=== PATIENT | male | born 1955 | race Caucasian/White ===

== ENCOUNTER → 2021-02-23 | Outpatient (CLI) | payer SELFPAY | END | disposition home or self-care (01) | PROVIDERS: Referring Provider Urology; Visit Provider Urology | DX: N21.0 Calculus in bladder (principal) | CPT/HCPCS: 82360 ==

== ENCOUNTER 2024-01-13 09:15 | Outpatient (RCR) | payer MEDICARE, SELFPAY ==
[2023-12-23 09:03] VITALS: BP 144/70; PULSE 74; RESP 18; TEMP 36.3; BMI 30.3
--- NOTE | 2023-12-23 11:53 | PCM.WC.HP ---
History of Present Illness Date of Service: 12/23/23 Chief Complaint: Right anterior leg ulcer History of Wound: 68 year old male presents with ulcer on his right anterior leg which he obtained in August or September after bumping it on a piece of equipment when he climbing up in it. When he noticed it wasn't healing, he went to his PCP, Dr. Salter. He was placed on Keflex and Bactrim and referred to us at the wound center. He has been placing triple antibiotic ointment on it, without much improvement in his ulcer. He has a medical history of DM type 2, kidney stones, tonsils removed when he was 32. Today he denies fever, chills, nausea or vomiting. He comes in for further evaluation of his right anterior leg ulcer. Progress of Wound: Right anterior leg ulcer with dry scabbing that is very painful to palpation. [facility] Medical History Kidney stones DM type 2 (diabetes mellitus, type 2) Home Medications ?Medication ?Instructions ?Recorded ?Last Taken ?Type amlodipine 5 mg tablet (Norvasc) 5 mg PO DAILY 12/23/23 Unknown History dulaglutide 4.5 mg/0.5 mL 4.5 mg subcut QWEEK 12/23/23 Unknown History subcutaneous pen injector (Trulicity) finasteride 5 mg tablet 5 mg PO DAILY 12/23/23 Unknown History glimepiride 4 mg tablet 4 mg PO 12/23/23 Unknown History metformin 500 mg tablet,extended 500 mg PO BID 12/23/23 Unknown History release 24hr (osmotic) sertraline 50 mg tablet 50 mg PO DAILY 12/23/23 Unknown History simvastatin 10 mg tablet 10 mg PO QHS 12/23/23 Unknown History tamsulosin 0.4 mg capsule 0.4 mg PO BID 12/23/23 Unknown History valsartan 320 1 tab PO QPM 12/23/23 Unknown History mg-hydrochlorothiazide 25 mg tablet Allergy/AdvReac Type Severity Reaction Status Date / Time No Known Allergies Allergy Verified 12/23/23 09:24 Family History Sister Diabetes Surgical History History of tonsillectomy Social History Smoking Status: Never smoker Vital Signs Vital Signs Vital Signs: 12/23/23 09:03 Temperature 97.4 F L Temperature Source Temporal Pulse Rate 74 Respiratory Rate 18 Blood Pressure 144/70 H Blood Pressure Mean 94 Blood Pressure Source Monitor Weight Weight: 230 lb 1.011 oz Body Mass Index (BMI) 30.3 Physical Exam Const alert, oriented x3 and no apparent distress General Appearance: cooperative HEENT normocephalic Head and Scalp: atraumatic Eyes General Eye: normal appearance of both eyes Neck full ROM Lymph Lymphatic: no lymphedema noted Resp normal respiratory effort and clear to auscultation bilaterally Effort and Inspection: able to speak in complete sentences Cardio regular rate and regular rhythm GI normal to inspection, nondistended, normoactive bowel sounds, soft to palpation and non-tender Back/Spine normal ROM Extremity full ROM and normal capillary refill Extremity Narrative: +2 edema of right leg. Pedal pulses +2 bilaterally. Skin Wound Narrative: Right anterior leg ulcer with thick, dry scab that is very painful to palpate. Neuro oriented x3 and moves all extremities Psych mental status grossly normal and cooperative Appearance: appropriate Debridement Note Debridement Note Wound debrided: anterior leg ulcer Laterality: Right Wound Grade/Stage: unstageable at this time Type of Debridement: Excisional debridement Anesthesia Used: 5% Lidocaine Gel and Cetacaine Depth: in the subcutaneous layer Percentage of wound debrided: 100 Instrument Used: 3mm curette, 5mm curette and #15 blade Tissue Removed: Attempted to remove non viable tissue/scabbing, but it is thick and painful Severity: Fat Layer Exposed Amount of bleeding with debridement: None Bleeding Controlled with: Pressure Patient tolerated procedure: Patient tolerated procedure well (patient tolerated it well, considering how painful it was for it to be palpated.) Post-Debridement Measurements and Additional Note: Post-Debridement Measurements/Treatment WC - Nurse 1 - General Ulcer Assessment Start: 12/23/23 09:02 Freq: Status: Active Protocol: NIHARIKA Activity Type Activity Date Activity User E-sign Co-sign Detail Recorded Client Recorded Date Recorded By Document 12/23/23 09:03 DL [id number] 12/23/23 09:20 DL 12/23/23 09:03 WC - Today's Visit Information Type of service Initial Visit Arrival Mode Ambulatory Transfer Assistance None Patient Identification Verified (Name & Yes ) Patient Requires Transmission-Based No Precautions Finger Stick Blood Sugar(mg/dl) (if 120 indicated): Blood Sugar Stated by Patient Height and Weight Height 6 ft 1 in Weight 230 lb 1.011 oz Weight in Pounds 230.1 lbs Weight Measurement Method Estimated by Patient Body Mass Index (BMI) 30.3 BMI Classification Obese BSA - Tania 2.28 Vital Signs Temperature (97.8 F-99.1 F) 97.4 F L Temperature Source Temporal Pulse Rate (60-100) 74 Pulse Location Monitor Respiratory Rate (12-18) 18 Respiratory rate source Observation Blood Pressure (90/60-120/80) 144/70 H Blood Pressure Mean 94 Source Monitor Pain Scale: 0-10 Numeric Is Patient Pain Free? Yes Lower Extremity Assessment/ Foot Assessment/ Toe Nail Assessment Left -Posterior Tibial Palpable Yes -Posterior Tibial Doppler Monophasic -Dorsalis Pedis Palpable Yes -Dorsalis Pedis Doppler Monophasic -Extremity Color Normal -Hair Growth on Legs Yes -Hair Growth on Toes Yes -Temperature of Extremity Warm -Capillary Refill Greater than 3 Seconds -Dependent Rubor No -Blanched when Elevated No -Lipodermatosclerosis No -Other Deformity No -Prior Foot Ulcer No -Charcot Joint No -Prior Amputation No -Thick Yes -Discolored Yes -Deformed Yes -Improper Length & Hygeine Yes Right -Posterior Tibial Palpable Yes -Posterior Tibial Doppler Monophasic -Dorsalis Pedis Palpable Yes -Dorsalis Pedis Doppler Monophasic -Extremity Color Normal -Hair Growth on Legs Yes -Hair Growth on Toes Yes -Temperature of Extremity Warm -Capillary Refill Greater than 3 Seconds -Dependent Rubor No -Blanched when Elevated No -Lipodermatosclerosis No -Other Deformity No -Prior Foot Ulcer No -Charcot Joint No -Prior Amputation No -Thick Yes -Discolored Yes -Deformed Yes -Improper Length & Hygeine Yes Neuropathy Assessment Feet - Top Side and Bottom <Entered> (a) Communication Assessment Preferred language Citizen Of [place] Able to Read Yes Able to Write Yes Right Hearing Abillity Normal Left Hearing Abillity Normal Visual Assistive Devices Glasses Teaching Assessment Preferences Verbal,Written, Demonstration Barriers to Learning None Readiness To Learn Fair Willingness to Engage in Self Management Med Activies Readiness to Engage in Self Management Med Activities Anxiety Level Calm Cooperation Cooperative Perception Coherent Interest in Health Problem Asks Questions Education Importance Acknowledges Need Does Patient Smoke tobacco or other No substances Smoking Status Never smoker Is Patient Diabetic Yes Functional Assessment Recent Decline in Ability to Perform Denies Any Declines Culture/Muslim/Boiler Coverer Helper Cultural/Muslim Needs that may affect No Treatment Plan Would you allow our hospital marketing area manager to No meet you for the purpose of spiritual/ emotional support? Boiler Coverer Helper to contact place of latter-day No Teaching: Wound Center Dressing Your Wound -Person Taught Patient *Welcome to the Wound Center -Person Taught Patient (a) 1 - + WC - Nurse 1 - General Ulcer Measurement Start: 12/23/23 09:02 Freq: Status: Active Protocol: Activity Type Activity Date Activity User E-sign Co-sign Detail Recorded Client Recorded Date Recorded By Document 12/23/23 09:03 DL [id number] 12/23/23 09:20 DL 12/23/23 09:03 Wound Center Nurse 1 #1 R Umanzor -Current Size (cm) - Length 2.8 -Current Size (cm) - Width 1.3 -Current Size (cm) - Depth 0.1 -Total Square Cm 3.64 -Photo Taken Yes -Epithelialization None Present -Classification - Thickness Unclassifiable (Eschar Covered ) -Exudate Amt None Present -Wound Margin Thickened -Granulation Amt None Present (0 %) -Slough/Fibrin Yes -Necrosis Amt Large (67-100%) -Necrotic Tissue Type Eschar -Structure Exposed N/A -Texture (Kathleen-wound Skin Appearance) Scarring -Moisture (Kathleen-wound Skin Appearance) No Abnormality -Color (Kathleen-wound Skin Appearance) Erythema -Temperature (Kathleen-wound Skin No Abnormality Appearance) (Pt Warm) -Ulcer Cleansing Soap and Water -Foul Odor after Cleansing No -Anesthetic Used 5% Lidocaine Gel Right Calf (cm) 38 Right Ankle (cm) 23.5 Left Calf (cm) 39 Left Ankle (cm) 22.5 WC - Nurse 2 - General Ulcer CM Notes Start: 12/23/23 09:02 Freq: Status: Active Protocol: Activity Type Activity Date Activity User E-sign Co-sign Detail Recorded Client Recorded Date Recorded By Document 12/23/23 09:59 KARL [id number] 12/23/23 10:01 JF 12/23/23 09:59 Wound Center Nurse 2 #1 R Umanzor -Time 09:59 -Correct Patient Yes -Correct Side, Site, Position Yes -Correct Procedure Yes -Procedure Performed Yes -Type of Procedure Debridement -Clinical Debridement Subcutaneous -Tissue Removed Subcutaneous -Post Debridement (cm) - Length 2.9 -Post Debridement (cm) - Width 1.5 -Post Debridement (cm) - Depth 0.1 -Total Square (Post) (cm) 4.35 -Area of Debridement (cm) - Length 2.9 -Area of Debridement (cm) - Width 1.5 -Total Square (Area) (cm) 4.35 -Tunneling No -Undermining/Tunneling No -Circular Undermining No -Wound/Ulcer Outcome Not Healed -Ulcer Cleansing Rinsed/ Irrigated with Saline -Foul Odor after Cleansing No -Bioengineered Tissue No -Bleeding Controlled with Pressure -Treatment Response Procedure Tolerated Well -Offloading No -Debridement - Subq, 1st 20sq cm Yes Pain Scale: 0-10 Numeric Is Patient Pain Free? Yes - Nurse 3 - General Ulcer D/C NN Start: 12/23/23 09:02 Freq: Status: Active Protocol: Activity Type Activity Date Activity User E-sign Co-sign Detail Recorded Client Recorded Date Recorded By Document 12/23/23 10:16 DL [id number] 12/23/23 10:17 DL 12/23/23 10:16 Wound Care Center Nurse 3 #1 R Umanzor -Ulcer Cleansing Rinsed/ Irrigated with Saline -Foul Odor after Cleansing No -Primary Dressing Applied C Hydrogel ($) -Primary Dressing Covered/Secured with Dry Gauze, Secured with Tape Right -Tubular Bandage Single Layer -Size of Tubigrip Used Size F -Size F ($) 1 Treatment Response Procedure Tolerated Well Pain Scale: 0-10 Numeric Is Patient Pain Free? Yes WC - Visit Discharge Discharge Condition Stable Ambulatory Status Ambulatory Transportation Private Auto Notes: pt to use Santyl when available Charges/Coding Visit Charges Office Visits / Consults: 75038 OV L4 Est 30min (25 modifier) Procedures Integumentary 111xxx-113xx: 75597 Crystal subq tissue 20 sq cm/< Assessment/Plan Assessment/Plan (1) Ulcer of right medial lower extremity with fat layer exposed: CODE(S): L97.812 - Non-pressure chronic ulcer of other part of right lower leg with fat layer exposed (2) DM type 2 (diabetes mellitus, type 2): CODE(S): E11.9 - Type 2 diabetes mellitus without complications PLAN: Plan Patient evaluated at the wound healing center today. Wound care - Santyl collagen nickel thickness, covered with gauze/ABD/[place] SAP dressing daily after washing with soap and water and patting dry. Compression - Single layer tubigrip. Encouraged him to keep his leg elevated as much as possible to help prevent swelling. He was scheduled later in the week at [facility] for arterial studies. I would like him to cancel those and I will order both arterial and venous studies here so that they meet wound center criteria for compression and wound care. He is to complete the antibiotics that his PCP placed him on. Follow up one week.
--- NOTE | 2023-12-24 11:57 | WC ---
PHOTO 12/23/23 RIGHT LOWER LEG/HELTON
[2023-12-30 11:21] VITALS: BP 154/82; PULSE 61; RESP 18; TEMP 36.3; BMI 30.3
--- NOTE | 2023-12-30 16:42 | PN.PCM_ITS ---
History of Present Illness Date of Service: 12/30/23 Chief Complaint: Right anterior leg ulcer History of Wound: 68 year old male presents with ulcer on his right anterior leg which he obtained in August or September after bumping it on a piece of equipment when he climbing up in it. When he noticed it wasn't healing, he went to his PCP, Dr. Salter. He was placed on Keflex and Bactrim and referred to us at the wound center. He has been placing triple antibiotic ointment on it, without much improvement in his ulcer. He has a medical history of DM type 2, kidney stones, tonsils removed when he was 32. Today he denies fever, chills, nausea or vomiting. He comes in for further evaluation of his right anterior leg ulcer. Progress of Wound: Right anterior leg ulcer with non viable, fibrous tissue present. He has been using the Santyl which has helped soften the non viable tissue. Objective Data Objective Data Vital Signs: Vital Signs Temp Pulse Resp BP O2 Del Method 97.3 F L 61 18 154/82 H Room Air 12/30/23 11:21 12/30/23 11:21 12/30/23 11:21 12/30/23 11:21 12/30/23 11:21 Oxygen Delivery Method Room Air Weight: 230 lb 1.011 oz Body Mass Index (BMI) 30.3 Charges/Coding Procedures Integumentary 111xxx-113xx: 12909 Crystal subq tissue 20 sq cm/< Debridement Note Debridement Note Wound debrided: anterior leg ulcer Laterality: Right Wound Grade/Stage: unstageable at this time Type of Debridement: Excisional debridement Anesthesia Used: 5% Lidocaine Gel and Cetacaine Depth: in the subcutaneous layer Percentage of wound debrided: 100 Instrument Used: 5mm curette and #15 blade Tissue Removed: Non viable tissue and slough Severity: Fat Layer Exposed Amount of bleeding with debridement: Mild Bleeding Controlled with: Pressure Patient tolerated procedure: Patient tolerated procedure well (patient tolerated it well, considering how painful it was for it to be palpated.) Post-Debridement Measurements and Additional Note: Post-Debridement Measurements/Treatment GARDENIA - Nurse 1 - General Ulcer Assessment Start: 12/23/23 09:02 Freq: Status: Active Protocol: NIHARIKA Activity Type Activity Date Activity User E-sign Co-sign Detail Recorded Client Recorded Date Recorded By Document 12/23/23 09:03 DL [id number] 12/23/23 09:20 DL Document 12/30/23 11:21 KW [id number] 12/30/23 11:28 KW 12/23/23 12/30/23 09:03 11:21 WC - Today's Visit Information Type of service Initial Visit Follow-up Visit (Physician/STEAMER TENDER ) Arrival Mode Ambulatory Ambulatory Transfer Assistance None Patient Identification Verified (Name & Yes Yes ) Patient Requires Transmission-Based No Precautions Finger Stick Blood Sugar(mg/dl) (if 120 indicated): Blood Sugar Stated by Patient Height and Weight Height 6 ft 1 in Weight 230 lb 1.011 oz Weight in Pounds 230.1 lbs Weight Measurement Method Estimated by Patient Body Mass Index (BMI) 30.3 30.3 BMI Classification Obese Obese BSA - Tania 2.28 Vital Signs Temperature (97.8 F-99.1 F) 97.4 F L 97.3 F L Temperature Source Temporal Temporal Pulse Rate (60-100) 74 61 Pulse Location Monitor Monitor Respiratory Rate (12-18) 18 18 Respiratory rate source Observation Observation Oxygen Delivery Method Room Air Blood Pressure (90/60-120/80) 144/70 H 154/82 H Blood Pressure Mean (mm Hg) 94 106 Source Monitor Monitor Position Semi-Fowlers Blood Pressure Location Left Arm History Since Last Visit- (Skip if this is Patient's initial visit) Have you changed medications since your No last visit? Any new allergies or adverse reactions No Had a fall/change in ADL's that may No increase risk of falls Signs or symptoms of abuse and/or No neglect since last visit Have you been in the hospital since your No last visit? Has dressing in place as prescribed Yes Has compression in place as prescribed Yes Has offloadiing in place as prescribed N/A Experienced any changes in pain level or No management Left Footwear Regular Shoe Right Footwear Regular Shoe Pain Scale: 0-10 Numeric Is Patient Pain Free? Yes Yes Lower Extremity Assessment/ Foot Assessment/ Toe Nail Assessment Left -Posterior Tibial Palpable Yes -Posterior Tibial Doppler Monophasic -Dorsalis Pedis Palpable Yes -Dorsalis Pedis Doppler Monophasic -Extremity Color Normal -Hair Growth on Legs Yes -Hair Growth on Toes Yes -Temperature of Extremity Warm -Capillary Refill Greater than 3 Seconds -Dependent Rubor No -Blanched when Elevated No -Lipodermatosclerosis No -Other Deformity No -Prior Foot Ulcer No -Charcot Joint No -Prior Amputation No -Thick Yes -Discolored Yes -Deformed Yes -Improper Length & Hygeine Yes Right -Posterior Tibial Palpable Yes -Posterior Tibial Doppler Monophasic -Dorsalis Pedis Palpable Yes -Dorsalis Pedis Doppler Monophasic -Extremity Color Normal -Hair Growth on Legs Yes -Hair Growth on Toes Yes -Temperature of Extremity Warm -Capillary Refill Greater than 3 Seconds -Dependent Rubor No -Blanched when Elevated No -Lipodermatosclerosis No -Other Deformity No -Prior Foot Ulcer No -Charcot Joint No -Prior Amputation No -Thick Yes -Discolored Yes -Deformed Yes -Improper Length & Hygeine Yes Neuropathy Assessment Feet - Top Side and Bottom <Entered> (a) Communication Assessment Preferred language [place] Able to Read Yes Able to Write Yes Right Hearing Abillity Normal Left Hearing Abillity Normal Visual Assistive Devices Glasses Teaching Assessment Preferences Verbal,Written, Demonstration Barriers to Learning None Readiness To Learn Fair Willingness to Engage in Self Management Med Activies Readiness to Engage in Self Management Med Activities Anxiety Level Calm Cooperation Cooperative Perception Coherent Interest in Health Problem Asks Questions Education Importance Acknowledges Need Does Patient Smoke tobacco or other No substances Smoking Status Never smoker Is Patient Diabetic Yes Functional Assessment Recent Decline in Ability to Perform Denies Any Declines Culture/Sabianist/Ground Control Approach Technician Cultural/Sabianist Needs that may affect No Treatment Plan Would you allow our hospital shipping agent to No meet you for the purpose of spiritual/ emotional support? Ground Control Approach Technician to contact place of cheondoism No Teaching: Wound Center Dressing Your Wound -Person Taught Patient *Welcome to the Wound Center -Person Taught Patient (a) 1 - + WC - Nurse 1 - General Ulcer Measurement Start: 12/23/23 09:02 Freq: Status: Active Protocol: Activity Type Activity Date Activity User E-sign Co-sign Detail Recorded Client Recorded Date Recorded By Document 12/23/23 09:03 DL [id number] 12/23/23 09:20 DL Document 12/30/23 11:21 KW [id number] 12/30/23 11:28 KW 12/23/23 12/30/23 09:03 11:21 Wound Center Nurse 1 #1 R Umanzor -Current Size (cm) - Length 2.8 3.5 -Current Size (cm) - Width 1.3 1.2 -Current Size (cm) - Depth 0.1 0.1 -Total Square Cm 3.64 4.20 -Photo Taken Yes -Epithelialization None Present -Classification - Thickness Unclassifiable (Eschar Covered ) -Exudate Amt None Present Small -Exudate Type Serosanguineous -Wound Margin Thickened Distinct, Outline Attached -Granulation Amt None Present (0 Small (1-33%) %) -Granulation Quality [place] -Slough/Fibrin Yes -Necrosis Amt Large (67-100%) Large (67-100%) -Necrotic Tissue Type Eschar Adherent Slough -Structure Exposed N/A -Texture (Kathleen-wound Skin Appearance) Scarring Assessed -Moisture (Kathleen-wound Skin Appearance) No Abnormality Assessed -Color (Kathleen-wound Skin Appearance) Erythema Assessed, Erythema -Temperature (Kathleen-wound Skin No Abnormality No Abnormality Appearance) (Pt Warm) (Pt Warm) -Tenderness on Palpation (Kathleen-wound Yes Skin Appearance) -Ulcer Cleansing Soap and Water Soap and Water -Foul Odor after Cleansing No No -Anesthetic Used 5% Lidocaine 5% Lidocaine Gel Gel Right Calf (cm) 38 38.8 Right Ankle (cm) 23.5 23 Left Calf (cm) 39 Left Ankle (cm) 22.5 WC - Nurse 2 - General Ulcer CM Notes Start: 12/23/23 09:02 Freq: Status: Active Protocol: Activity Type Activity Date Activity User E-sign Co-sign Detail Recorded Client Recorded Date Recorded By Document 12/23/23 09:59 [id number] 12/23/23 10:01 Document 12/30/23 11:58 [facility] [id number] 12/30/23 12:01 [facility] 12/23/23 12/30/23 09:59 11:58 Wound Center Nurse 2 #1 R Umanzor -Time 09:59 11:59 -Correct Patient Yes Yes -Correct Side, Site, Position Yes Yes -Correct Procedure Yes Yes -Procedure Performed Yes Yes -Type of Procedure Debridement Debridement -Clinical Debridement Subcutaneous Subcutaneous -Tissue Removed Subcutaneous Subcutaneous -Post Debridement (cm) - Length 2.9 3.5 -Post Debridement (cm) - Width 1.5 1.5 -Post Debridement (cm) - Depth 0.1 0.1 -Total Square (Post) (cm) 4.35 5.25 -Area of Debridement (cm) - Length 2.9 3.5 -Area of Debridement (cm) - Width 1.5 1.5 -Total Square (Area) (cm) 4.35 5.25 -Tunneling No No -Undermining/Tunneling No No -Circular Undermining No No -Wound/Ulcer Outcome Not Healed Not Healed -Ulcer Cleansing Rinsed/ Rinsed/ Irrigated with Irrigated with Saline Saline -Foul Odor after Cleansing No No -Bioengineered Tissue No No -Bleeding Controlled with Pressure Pressure -Treatment Response Procedure Procedure Tolerated Well Tolerated Well -Offloading No -Debridement - Subq, 1st 20sq cm Yes Yes Pain Scale: 0-10 Numeric Is Patient Pain Free? Yes Yes - Nurse 3 - General Ulcer D/C NN Start: 12/23/23 09:02 Freq: Status: Active Protocol: Activity Type Activity Date Activity User E-sign Co-sign Detail Recorded Client Recorded Date Recorded By Document 12/23/23 10:16 DL [id number] 12/23/23 10:17 DL Document 12/30/23 12:13 JF [id number] 12/30/23 12:13 12/23/23 12/30/23 10:16 12:13 Wound Care Center Nurse 3 #1 R Umanzor -Ulcer Cleansing Rinsed/ Rinsed/ Irrigated with Irrigated with Saline Saline -Foul Odor after Cleansing No No -Primary Dressing Applied C Hydrogel ($) -Other Dressing santyl ointment -Primary Dressing Covered/Secured with Dry Gauze, Dry Gauze & Secured with Roll Gauze Tape -Wound Comment(s) excel sap dressing from patient's own supply. Right -Tubular Bandage Single Layer Single Layer -Size of Tubigrip Used Size F Size D -Size D ($) 0 -Size F ($) 1 Treatment Response Procedure Tolerated Well Pain Scale: 0-10 Numeric Is Patient Pain Free? Yes Yes WC - Visit Discharge Discharge Condition Stable Stable Ambulatory Status Ambulatory Ambulatory Transportation Private Auto Private Auto Medication Reconcilliation completed & Yes provided to patient/care provider Clinical Summary of Care Provided Yes Notes: pt to use Santyl when available Assessment/Plan Assessment/Plan (1) Ulcer of right medial lower extremity with fat layer exposed: CODE(S): L97.812 - Non-pressure chronic ulcer of other part of right lower leg with fat layer exposed (2) DM type 2 (diabetes mellitus, type 2): CODE(S): E11.9 - Type 2 diabetes mellitus without complications PLAN: Plan Patient evaluated at the wound healing center today. Wound care - Continue Santyl collagen nickel thickness, covered with gauze/ABD/[place] SAP dressing daily after washing with soap and water and patting dry. Compression - Single layer tubigrip. Encouraged him to keep his leg elevated as much as possible to help prevent swelling. He is scheduled next Saturday for arterial and venous studies. He completed the antibiotics that his PCP placed him on. Follow up one week.
--- NOTE | 2024-01-06 07:45 | ART_ITS ---
Reason For Study: Wound Procedure A bilateral lower extremity continuous wave Doppler with analog waveform analysis,segmental pressures,and ankle brachial indexes without exercise. Left Segmental Pressures Left brachial= 151mmHg. Left posterior tibial artery = 219mmHg. Left dorsalis pedis artery = 209mmHg. Left digit = 198 mmHg. The left posterior tibial artery waveforms are triphasic. The left dorsalis pedis waveforms are triphasic. Right Segmental Pressures Right brachial= 148mmHg. Right posterior tibial artery = 198mmHg. Right dorsalis pedis artery = 199mmHg. Right digit = 164 mmHg. The right posterior tibial artery waveforms are triphasic. The right dorsalis pedis waveforms are triphasic. Indices The right ankle brachial index by the posterior tibial artery is 1.31. The right ankle brachial index by the dorsalis pedis is 1.32. The right digital-brachial index is 1.09. The left ankle brachial index by the posterior tibial artery is 1.45. The left ankle brachial index by the dorsalis pedis is 1.38. The left digital-brachial index is 1.31. VL/Lower Ext Art Exam w/o Exercis Interpretation Summary Triphasic Doppler waveforms are noted at ankle level bilaterally. Pulse-volume recordings appear diminished at digital level on the left, but satisfactory at all other levels b ilaterally. The resting right ankle-brachial index is normal. The resting left ankle-brachial i ndex is supra-normal. Digital-brachial indices are normal bilaterally. There is evidence of arterial calcification at ankle level on the left. There i s no evidence of significant arterial occlusive disease in the lower extremities bilaterally. Ordering Physician: Cinthia Whiting Referring Physician: Darwin Mcneal Performed By: Carlos Malik RVT
--- NOTE | 2024-01-06 07:45 | VDLE_ITS ---
Reason For Study: Edema RIGHT LEFT CFV is compressible, spontaneous, phasic, CFV is compressible, spontaneous, phasic, competent and demonstrates normal competent, and demonstrates normal augmentation. augmentation. FV is compressible, spontaneous, phasic, FV is compressible, spontaneous, phasic, competent and demonstrates normal competent and demonstrates normal augmentation. augmentation. POP V is compressible, spontaneous, phasic, POP V is compressible, spontaneous, phasic, competent and demonstrates normal competent and demonstrates normal augmentation. augmentation. T/P Trunk is compressible. T/P Trunk is compressible. PTV is compressible. PTV is compressible. RT PerV is compressible. LT PerV is compressible. SFJ is competent and measures 0.52 cm. SFJ is competent and measures 0.63 cm. GSV proximal thigh measures 0.30 x 0.34 cm. GSV proximal thigh measures 0.38 x 0.40 cm. GSV at knee measures 0.48 x 0.49 cm. GSV at knee measures 0.50 x 0.49 cm. GSV above knee is competent. GSV above knee is competent. GSV below knee is INCOMPETENT for greater GSV below knee is INCOMPETENT for greater than 0.5 seconds. than 0.5 seconds. SSV at junction is competent and measures SSV at junction is competent and measures 0.28 cm. 0.33 cm. SSV proximal calf is competent and measures SSV proximal calf is competent and measures 0.30 x 0.29 cm. 0.25 x 0.26 cm. Procedure This is a venous duplex using B-mode, color flow and spectral Doppler. Exam performed in department. The exam was diagnostic. Patient was scanned in reverse Trendelenburg position during reflux assessment. A preliminary report was called and/or faxed to [facility]. VL/Venous Duplex US - Day[place] Extrem Interpretation Summary Deep veins of the lower extremities are bilaterally patent and compressible seg mentally. There is no evidence of deep vein thrombosis on either side. Valvular competence appears in tact within the proximal deep venous systems bilaterally. The great saphenous veins appear bila terally patent and compressible segmentally. Sapheno-femoral junctions are bilaterally competent . The right great saphenous vein appears competent above the knee. 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 The left great saphenous vein appears competent above the knee. The left great saphenous vein appears incompetent below the knee. Small saphenous veins are pa tent and competent bilaterally. Ordering Physician: Cinthia Whiting Referring Physician: Darwin Mcneal Performed By: Carlos Malik RVT
[2024-01-06 09:33] VITALS: BP 142/77; PULSE 64; RESP 16; TEMP 36.5; BMI 30.3
--- NOTE | 2024-01-06 11:00 | PCM.WC.PN ---
History of Present Illness Date of Service: 01/06/24 Chief Complaint: Right anterior leg ulcer History of Wound: 68 year old male presents with ulcer on his right anterior leg which he obtained in August or September after bumping it on a piece of equipment when he climbing up in it. When he noticed it wasn't healing, he went to his PCP, Dr. Salter. He was placed on Keflex and Bactrim and referred to us at the wound center. He has been placing triple antibiotic ointment on it, without much improvement in his ulcer. He has a medical history of DM type 2, kidney stones, tonsils removed when he was 32. Today he denies fever, chills, nausea or vomiting. He comes in for further evaluation of his right anterior leg ulcer. Progress of Wound: Right anterior leg ulcer with non viable, fibrous tissue present. He has been using the Santyl which has helped soften the non viable tissue. This area continues to be very painful for him to have debrided. There is not much improvement this week with the fibrous tissue using the santyl. He has +3 pitting edema of his right leg. Objective Data Objective Data Vital Signs: Vital Signs Temp Pulse Resp BP O2 Del Method 97.7 F L 64 16 142/77 H Room Air 01/06/24 09:33 01/06/24 09:33 01/06/24 09:33 01/06/24 09:33 01/06/24 09:33 Oxygen Delivery Method Room Air Weight: 230 lb 1.011 oz Body Mass Index (BMI) 30.3 Charges/Coding Procedures Integumentary 111xxx-113xx: [id number] Crystal subq tissue 20 sq cm/< Debridement Note Debridement Note Wound debrided: anterior leg ulcer Laterality: Right Wound Grade/Stage: unstageable at this time Type of Debridement: Excisional debridement Anesthesia Used: 5% Lidocaine Gel Depth: in the subcutaneous layer Percentage of wound debrided: 100 Instrument Used: 5mm curette Tissue Removed: Non viable tissue and slough Severity: Fat Layer Exposed Amount of bleeding with debridement: Mild Bleeding Controlled with: Pressure Patient tolerated procedure: Patient tolerated procedure well (patient tolerated it well, considering how painful it was for it to be palpated.) Post-Debridement Measurements and Additional Note: Post-Debridement Measurements/Treatment WC - Nurse 1 - General Ulcer Assessment Start: 10/07/24 09:02 Freq: Status: Active Protocol: WC.LOWEXT Activity Type Activity Date Activity User E-sign Co-sign Detail Recorded Client Recorded Date Recorded By Document 12/23/23 09:03 DL [id number] 12/23/23 09:20 DL Document 12/30/23 11:21 KW [id number] 12/30/23 11:28 KW Document 01/06/24 09:33 KW [id number] 01/06/24 09:39 KW 12/23/23 12/30/23 01/06/24 09:03 11:21 09:33 WC - Today's Visit Information Type of service Initial Visit Follow-up Visit Follow-up Visit (Physician/NUCLEAR MONITORING TECHNICIAN (Physician/NUCLEAR MONITORING TECHNICIAN ) ) Arrival Mode Ambulatory Ambulatory Ambulatory Transfer Assistance None Patient Identification Verified (Name & Yes Yes Yes ) Patient Requires Transmission-Based No Precautions Finger Stick Blood Sugar(mg/dl) (if 120 indicated): Blood Sugar Stated by Patient Height and Weight Height 6 ft 1 in Weight 230 lb 1.011 oz Weight in Pounds 230.1 lbs Weight Measurement Method Estimated by Patient Body Mass Index (BMI) 30.3 30.3 30.3 BMI Classification Obese Obese Obese BSA - Tania 2.28 Vital Signs Temperature (97.8 F-99.1 F) 97.4 F L 97.3 F L 97.7 F L Temperature Source Temporal Temporal Temporal Pulse Rate (60-100) 74 61 64 Pulse Location Monitor Monitor Monitor Respiratory Rate (12-18) 18 18 16 Respiratory rate source Observation Observation Observation Oxygen Delivery Method Room Air Room Air Blood Pressure (90/60-120/80) 144/70 H 154/82 H 142/77 H Blood Pressure Mean (mm Hg) 94 106 98 Source Monitor Monitor Monitor Position Semi-Fowlers Semi-Fowlers Blood Pressure Location Left Arm Left Arm History Since Last Visit- (Skip if this is Patient's initial visit) Have you changed medications since your No No last visit? Any new allergies or adverse reactions No No Had a fall/change in ADL's that may No No increase risk of falls Signs or symptoms of abuse and/or No No neglect since last visit Have you been in the hospital since your No No last visit? Has dressing in place as prescribed Yes Yes Has compression in place as prescribed Yes Yes Has offloadiing in place as prescribed N/A N/A Experienced any changes in pain level or No No management Left Footwear Regular Shoe Regular Shoe Right Footwear Regular Shoe Regular Shoe Pain Scale: 0-10 Numeric Is Patient Pain Free? Yes Yes Yes Lower Extremity Assessment/ Foot Assessment/ Toe Nail Assessment Left -Posterior Tibial Palpable Yes -Posterior Tibial Doppler Monophasic -Dorsalis Pedis Palpable Yes -Dorsalis Pedis Doppler Monophasic -Extremity Color Normal -Hair Growth on Legs Yes -Hair Growth on Toes Yes -Temperature of Extremity Warm -Capillary Refill Greater than 3 Seconds -Dependent Rubor No -Blanched when Elevated No -Lipodermatosclerosis No -Other Deformity No -Prior Foot Ulcer No -Charcot Joint No -Prior Amputation No -Thick Yes -Discolored Yes -Deformed Yes -Improper Length & Hygeine Yes Right -Posterior Tibial Palpable Yes -Posterior Tibial Doppler Monophasic -Dorsalis Pedis Palpable Yes -Dorsalis Pedis Doppler Monophasic -Extremity Color Normal -Hair Growth on Legs Yes -Hair Growth on Toes Yes -Temperature of Extremity Warm -Capillary Refill Greater than 3 Seconds -Dependent Rubor No -Blanched when Elevated No -Lipodermatosclerosis No -Other Deformity No -Prior Foot Ulcer No -Charcot Joint No -Prior Amputation No -Thick Yes -Discolored Yes -Deformed Yes -Improper Length & Hygeine Yes Neuropathy Assessment Feet - Top Side and Bottom <Entered> (a) Communication Assessment Preferred language [place]ian Able to Read Yes Able to Write Yes Right Hearing Abillity Normal Left Hearing Abillity Normal Visual Assistive Devices Glasses Teaching Assessment Preferences Verbal,Written, Demonstration Barriers to Learning None Readiness To Learn Fair Willingness to Engage in Self Management Med Activies Readiness to Engage in Self Management Med Activities Anxiety Level Calm Cooperation Cooperative Perception Coherent Interest in Health Problem Asks Questions Education Importance Acknowledges Need Does Patient Smoke tobacco or other No substances Smoking Status Never smoker Is Patient Diabetic Yes Functional Assessment Recent Decline in Ability to Perform Denies Any Declines Culture/Restorationism/Plate Printer Cultural/Restorationism Needs that may affect No Treatment Plan Would you allow our hospital cycle liaison to No meet you for the purpose of spiritual/ emotional support? Plate Printer to contact place of nondenominational No Teaching: Wound Center Dressing Your Wound -Person Taught Patient *Welcome to the Wound Center -Person Taught Patient (a) 1 - + WC - Nurse 1 - General Ulcer Measurement Start: 12/23/23 09:02 Freq: Status: Active Protocol: Activity Type Activity Date Activity User E-sign Co-sign Detail Recorded Client Recorded Date Recorded By Document 12/23/23 09:03 DL [id number] 12/23/23 09:20 DL Document 12/30/23 11:21 KW [id number] 12/30/23 11:28 KW Document 01/06/24 09:33 KW [id number] 01/06/24 09:39 KW 12/23/23 12/30/23 01/06/24 09:03 11:21 09:33 Wound Center Nurse 1 #1 R Umanzor -Current Size (cm) - Length 2.8 3.5 3.8 -Current Size (cm) - Width 1.3 1.2 1.6 -Current Size (cm) - Depth 0.1 0.1 0.1 -Total Square Cm 3.64 4.20 6.08 -Photo Taken Yes -Epithelialization None Present Small 1-33% -Tunneling No -Undermining/Tunneling No -Circular Undermining No -Classification - Thickness Unclassifiable (Eschar Covered ) -Exudate Amt None Present Small Medium -Exudate Type Serosanguineous Serosanguineous -Wound Margin Thickened Distinct, Distinct, Outline Outline Attached Attached -Granulation Amt None Present (0 Small (1-33%) Small (1-33%) %) -Granulation Quality [place] Red -Slough/Fibrin Yes Yes -Necrosis Amt Large (67-100%) Large (67-100%) Large (67-100%) -Necrotic Tissue Type Eschar Adherent Slough Adherent Slough -Structure Exposed N/A -Texture (Kathleen-wound Skin Appearance) Scarring Assessed Assessed -Moisture (Kathleen-wound Skin Appearance) No Abnormality Assessed Assessed -Color (Kathleen-wound Skin Appearance) Erythema Assessed, Assessed, Erythema Erythema -Temperature (Kathleen-wound Skin No Abnormality No Abnormality No Abnormality Appearance) (Pt Warm) (Pt Warm) (Pt Warm) -Tenderness on Palpation (Kathleen-wound Yes No Skin Appearance) -Ulcer Cleansing Soap and Water Soap and Water Rinsed/ Irrigated with Saline -Foul Odor after Cleansing No No No -Anesthetic Used 5% Lidocaine 5% Lidocaine 5% Lidocaine Gel Gel Gel Lower Limb Edema Present Yes Right Calf (cm) 38 38.8 38.2 Right Ankle (cm) 23.5 23 23.5 Left Calf (cm) 39 Left Ankle (cm) 22.5 WC - Nurse 2 - General Ulcer CM Notes Start: 12/23/23 09:02 Freq: Status: Active Protocol: Activity Type Activity Date Activity User E-sign Co-sign Detail Recorded Client Recorded Date Recorded By Document 12/23/23 09:59 [id number] 12/23/23 10:01 Document 12/30/23 11:58 [email or web address] [id number] 12/30/23 12:01 BM Document 01/06/24 10:04 [id number] 01/06/24 10:10 12/23/23 12/30/23 01/06/24 09:59 11:58 10:04 Wound Center Nurse 2 #1 R Umanzor -Time 09:59 11:59 10:05 -Correct Patient Yes Yes Yes -Correct Side, Site, Position Yes Yes Yes -Correct Procedure Yes Yes Yes -Procedure Performed Yes Yes Yes -Type of Procedure Debridement Debridement Debridement -Clinical Debridement Subcutaneous Subcutaneous Subcutaneous -Tissue Removed Subcutaneous Subcutaneous Subcutaneous -Post Debridement (cm) - Length 2.9 3.5 3.8 -Post Debridement (cm) - Width 1.5 1.5 1.7 -Post Debridement (cm) - Depth 0.1 0.1 0.1 -Total Square (Post) (cm) 4.35 5.25 6.46 -Area of Debridement (cm) - Length 2.9 3.5 3.8 -Area of Debridement (cm) - Width 1.5 1.5 1.7 -Total Square (Area) (cm) 4.35 5.25 6.46 -Tunneling No No No -Undermining/Tunneling No No No -Circular Undermining No No No -Wound/Ulcer Outcome Not Healed Not Healed Not Healed -Ulcer Cleansing Rinsed/ Rinsed/ Rinsed/ Irrigated with Irrigated with Irrigated with Saline Saline Saline -Foul Odor after Cleansing No No No -Bioengineered Tissue No No No -Bleeding Controlled with Pressure Pressure Pressure -Treatment Response Procedure Procedure Procedure Tolerated Well Tolerated Well Tolerated Well -Offloading No No -Debridement - Subq, 1st 20sq cm Yes Yes Yes Pain Scale: 0-10 Numeric Is Patient Pain Free? Yes Yes Yes [place] - Nurse 3 - General Ulcer D/C NN Start: 12/23/23 09:02 Freq: Status: Active Protocol: Activity Type Activity Date Activity User E-sign Co-sign Detail Recorded Client Recorded Date Recorded By Document 12/23/23 10:16 DL [id number] 12/23/23 10:17 DL Document 12/30/23 12:13 JF [id number] 12/30/23 12:13 JF Document 01/06/24 10:15 KW [id number] 01/06/24 10:16 KW 12/23/23 12/30/23 01/06/24 10:16 12:13 10:15 Wound Care Center Nurse 3 #1 R Umanzor -Ulcer Cleansing Rinsed/ Rinsed/ Irrigated with Irrigated with Saline Saline -Foul Odor after Cleansing No No -Primary Dressing Applied C Hydrogel ($) Aquacel AG 4x4 -Other Dressing santyl ointment -Primary Dressing Covered/Secured with Dry Gauze, Dry Gauze & Dry Gauze & Secured with Roll Gauze Roll Gauze, Tape Secured with Tape -Aquacel AG 4x4 1 -Wound Comment(s) excel sap dressing from patient's own supply. Right -Multi-Layered Wrap Application Multi-Layer Comp - Right ($ ) -Tubular Bandage Single Layer Single Layer -Size of Tubigrip Used Size F Size D -Size D ($) 0 -Size F ($) 1 Treatment Response Procedure Tolerated Well Pain Scale: 0-10 Numeric Is Patient Pain Free? Yes Yes Yes WC - Visit Discharge Discharge Condition Stable Stable Stable Ambulatory Status Ambulatory Ambulatory Ambulatory Transportation Private Auto Private Auto Private Auto Medication Reconcilliation completed & Yes No provided to patient/care provider Clinical Summary of Care Provided Yes Yes Notes: pt to use Santyl when available Assessment/Plan Assessment/Plan (1) Ulcer of right medial lower extremity with fat layer exposed: CODE(S): L97.812 - Non-pressure chronic ulcer of other part of right lower leg with fat layer exposed (2) DM type 2 (diabetes mellitus, type 2): CODE(S): E11.9 - Type 2 diabetes mellitus without complications PLAN: Plan Patient evaluated at the wound healing center today. Wound care - Stop the Santyl. Place Moistened Aquacel-Ag over the ulcer and cover with Ecxcel SAP. Compression - 3M 2 layer wraps. Encouraged him to keep his leg elevated as much as possible to help prevent swelling. Preliminary arterial studies reviewed (done earlier today) show Right DAVE 1.32 and Left DAVE 1.45. Waiting on venous studies. Able to increase compression with the results of the Arterial studies. He completed the antibiotics that his PCP placed him on. Follow up for a nurse's visit to have 3M 2 layer wraps changed and evaluate how he is managing with them. Follow up one week to see me.
[2024-01-09 08:58] VITALS: BP 145/72; PULSE 65; RESP 18; TEMP 36.4; BMI 30.3
[2024-01-13 09:04] VITALS: BP 170/78; PULSE 68; RESP 16; TEMP 35.9; BMI 30.3
--- NOTE | 2024-01-13 12:01 | PCM.WC.PN ---
History of Present Illness Date of Service: 01/13/24 Chief Complaint: Right anterior leg ulcer History of Wound: 68 year old male presents with ulcer on his right anterior leg which he obtained in August or September after bumping it on a piece of equipment when he climbing up in it. When he noticed it wasn't healing, he went to his PCP, Dr. Salter. He was placed on Keflex and Bactrim and referred to us at the wound center. He has been placing triple antibiotic ointment on it, without much improvement in his ulcer. He has a medical history of DM type 2, kidney stones, tonsils removed when he was 32. Arterial studies were completed on 01/06/24 - Right DAVE = 1.32. Left DAVE = 1.45. Triphasic Doppler waveforms are noted at the ankle level bilaterally. Pulse-volume recordings appear diminished at the digital level on the left, but satisfactory at all other levels bilaterally. The resting right ankle-brachial index is normal. The resting left ankle-brachial index is supra-normal. Digital-brachial indices are normal bilaterally. There is evidence of arterial calcification at the ankle level on the left. There is no evidence of significant arterial occlusive disease in the lower extremities bilaterally. Venous studies completed on 01/06/24 - Deep veins of the lower extremities are bilaterally patent and compressible segmentally. There is no evidence of deep vein thrombosis on either side. 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 The left great saphenous vein appears incompetent below the knee. Today he denies fever, chills, nausea or vomiting. He comes in for further evaluation of his right anterior leg ulcer. Progress of Wound: Vascular studies obtained on 01/06/24 and reviewed. He continues to have increased discomfort of the ulcer on his right anterior leg. There continues to be increased non viable tissue present on the ulcer and he does not tolerate the debridement. His edema has resolved with the 3M 2 layer wrap compression. Objective Data Objective Data Vital Signs: Vital Signs Temp Pulse Resp BP O2 Del Method 96.7 F L 68 16 170/78 H Room Air 01/13/24 09:04 01/13/24 09:04 01/13/24 09:04 01/13/24 09:04 01/13/24 09:04 Oxygen Delivery Method Room Air Weight: 230 lb 1.011 oz Body Mass Index (BMI) 30.3 Charges/Coding Procedures Integumentary [id number]: [id number] Crystal subq tissue 20 sq cm/< Debridement Note Debridement Note Wound debrided: anterior leg ulcer Laterality: Right Wound Grade/Stage: unstageable at this time Type of Debridement: Excisional debridement Anesthesia Used: 5% Lidocaine Gel and - (Lidocaine 1% with epi) Depth: in the subcutaneous layer Percentage of wound debrided: 100 Instrument Used: 5mm curette, #10 blade and Forceps Tissue Removed: Non viable tissue and slough Severity: Fat Layer Exposed Amount of bleeding with debridement: Mild Bleeding Controlled with: Pressure and Compression and gauze Patient tolerated procedure: Patient tolerated procedure well (patient tolerated it well, considering how painful it was for it to be palpated.) Debridement Free Text: Used #15 blade and forceps after injecting Lidocaine 1% with epi to remove a significant amount of non viable tissue Post-Debridement Measurements and Additional Note: Post-Debridement Measurements/Treatment WC - Nurse 1 - General Ulcer Assessment Start: 12/23/23 09:02 Freq: Status: Active Protocol: NIHARIKA Activity Type Activity Date Activity User E-sign Co-sign Detail Recorded Client Recorded Date Recorded By Document 12/23/23 09:03 DL [id number] 12/23/23 09:20 DL Document 12/30/23 11:21 KW [id number] 12/30/23 11:28 KW Document 01/06/24 09:33 KW [id number] 01/06/24 09:39 KW Document 01/09/24 08:58 RB [id number] 01/09/24 09:00 RB Document 01/13/24 09:04 BM [id number] 01/13/24 09:13 BM 12/23/23 12/30/23 01/06/24 09:03 11:21 09:33 - Today's Visit Information Type of service Initial Visit Follow-up Visit Follow-up Visit (Physician/ROCK LOADER (Physician/ROCK LOADER ) ) Arrival Mode Ambulatory Ambulatory Ambulatory Transfer Assistance None Patient Identification Verified (Name & Yes Yes Yes ) Patient Requires Transmission-Based No Precautions Finger Stick Blood Sugar(mg/dl) (if 120 indicated): Blood Sugar Stated by Patient Height and Weight Height 6 ft 1 in Weight 230 lb 1.011 oz Weight in Pounds 230.1 lbs Weight Measurement Method Estimated by Patient Body Mass Index (BMI) 30.3 30.3 30.3 BMI Classification Obese Obese Obese BSA - Tania 2.28 Vital Signs Temperature (97.8 F-99.1 F) 97.4 F L 97.3 F L 97.7 F L Temperature Source Temporal Temporal Temporal Pulse Rate (60-100) 74 61 64 Pulse Location Monitor Monitor Monitor Respiratory Rate (12-18) 18 18 16 Respiratory rate source Observation Observation Observation Oxygen Delivery Method Room Air Room Air Blood Pressure (90/60-120/80) 144/70 H 154/82 H 142/77 H Blood Pressure Mean (mm Hg) 94 106 98 Source Monitor Monitor Monitor Position Semi-Fowlers Semi-Fowlers Blood Pressure Location Left Arm Left Arm History Since Last Visit- (Skip if this is Patient's initial visit) Have you changed medications since your No No last visit? Any new allergies or adverse reactions No No Had a fall/change in ADL's that may No No increase risk of falls Signs or symptoms of abuse and/or No No neglect since last visit Have you been in the hospital since your No No last visit? Has dressing in place as prescribed Yes Yes Has compression in place as prescribed Yes Yes Has offloadiing in place as prescribed N/A N/A Experienced any changes in pain level or No No management Left Footwear Regular Shoe Regular Shoe Right Footwear Regular Shoe Regular Shoe Pain Scale: 0-10 Numeric Is Patient Pain Free? Yes Yes Yes Lower Extremity Assessment/ Foot Assessment/ Toe Nail Assessment Left -Posterior Tibial Palpable Yes -Posterior Tibial Doppler Monophasic -Dorsalis Pedis Palpable Yes -Dorsalis Pedis Doppler Monophasic -Extremity Color Normal -Hair Growth on Legs Yes -Hair Growth on Toes Yes -Temperature of Extremity Warm -Capillary Refill Greater than 3 Seconds -Dependent Rubor No -Blanched when Elevated No -Lipodermatosclerosis No -Other Deformity No -Prior Foot Ulcer No -Charcot Joint No -Prior Amputation No -Thick Yes -Discolored Yes -Deformed Yes -Improper Length & Hygeine Yes Right -Posterior Tibial Palpable Yes -Posterior Tibial Doppler Monophasic -Dorsalis Pedis Palpable Yes -Dorsalis Pedis Doppler Monophasic -Extremity Color Normal -Hair Growth on Legs Yes -Hair Growth on Toes Yes -Temperature of Extremity Warm -Capillary Refill Greater than 3 Seconds -Dependent Rubor No -Blanched when Elevated No -Lipodermatosclerosis No -Other Deformity No -Prior Foot Ulcer No -Charcot Joint No -Prior Amputation No -Thick Yes -Discolored Yes -Deformed Yes -Improper Length & Hygeine Yes Neuropathy Assessment Feet - Top Side and Bottom <Entered> (a) Communication Assessment Preferred language Hungarian Able to Read Yes Able to Write Yes Right Hearing Abillity Normal Left Hearing Abillity Normal Visual Assistive Devices Glasses Teaching Assessment Preferences Verbal,Written, Demonstration Barriers to Learning None Readiness To Learn Fair Willingness to Engage in Self Management Med Activies Readiness to Engage in Self Management Med Activities Anxiety Level Calm Cooperation Cooperative Perception Coherent Interest in Health Problem Asks Questions Education Importance Acknowledges Need Does Patient Smoke tobacco or other No substances Smoking Status Never smoker Is Patient Diabetic Yes Functional Assessment Recent Decline in Ability to Perform Denies Any Declines Culture/Amish/Doggy Daycare Activities Director Cultural/Amish Needs that may affect No Treatment Plan Would you allow our [facility] professor of education to No meet you for the purpose of spiritual/ emotional support? Doggy Daycare Activities Director to contact place of christian No Teaching: Wound Center Dressing Your Wound -Person Taught Patient *Welcome to the Wound Center -Person Taught Patient 01/09/24 01/13/24 08:58 09:04 WC - Today's Visit Information Type of service Follow-up Visit Follow-up Visit (Physician/ROCK LOADER (Physician/ROCK LOADER ) ) Arrival Mode Ambulatory Ambulatory Transfer Assistance None None Patient Identification Verified (Name & Yes Yes ) Patient Requires Transmission-Based No No Precautions Finger Stick Blood Sugar(mg/dl) (if indicated): Blood Sugar Height and Weight Height Weight Weight in Pounds Weight Measurement Method Body Mass Index (BMI) 30.3 30.3 BMI Classification Obese Obese [facility] - Tania Vital Signs Temperature (97.8 F-99.1 F) 97.6 F L 96.7 F L Temperature Source Temporal Temporal Pulse Rate (60-100) 65 68 Pulse Location Monitor Monitor Respiratory Rate (12-18) 18 16 Respiratory rate source Observation Observation Oxygen Delivery Method Room Air Blood Pressure (90/60-120/80) 145/72 H 170/78 H Blood Pressure Mean (mm Hg) 96 108 Source Monitor Monitor Position Semi-Fowlers Sitting Blood Pressure Location Left Arm Left Arm History Since Last Visit- (Skip if this is Patient's initial visit) Have you changed medications since your No No last visit? Any new allergies or adverse reactions No No Had a fall/change in ADL's that may No No increase risk of falls Signs or symptoms of abuse and/or No No neglect since last visit Have you been in the hospital since your No No last visit? Has dressing in place as prescribed Yes Yes Has compression in place as prescribed Yes Yes Has offloadiing in place as prescribed No N/A Experienced any changes in pain level or No No management Left Footwear Regular Shoe Right Footwear Regular Shoe Pain Scale: 0-10 Numeric Is Patient Pain Free? Yes Yes Lower Extremity Assessment/ Foot Assessment/ Toe Nail Assessment Left -Posterior Tibial Palpable -Posterior Tibial Doppler -Dorsalis Pedis Palpable -Dorsalis Pedis Doppler -Extremity Color -Hair Growth on Legs -Hair Growth on Toes -Temperature of Extremity -Capillary Refill -Dependent Rubor -Blanched when Elevated -Lipodermatosclerosis -Other Deformity -Prior Foot Ulcer -Charcot Joint -Prior Amputation -Thick -Discolored -Deformed -Improper Length & Hygeine Right -Posterior Tibial Palpable -Posterior Tibial Doppler -Dorsalis Pedis Palpable -Dorsalis Pedis Doppler -Extremity Color -Hair Growth on Legs -Hair Growth on Toes -Temperature of Extremity -Capillary Refill -Dependent Rubor -Blanched when Elevated -Lipodermatosclerosis -Other Deformity -Prior Foot Ulcer -Charcot Joint -Prior Amputation -Thick -Discolored -Deformed -Improper Length & Hygeine Neuropathy Assessment Feet - Top Side and Bottom Communication Assessment Preferred language Able to Read Able to Write Right Hearing Abillity Left Hearing Abillity Visual Assistive Devices Teaching Assessment Preferences Barriers to Learning Readiness To Learn Willingness to Engage in Self Management Activies Readiness to Engage in Self Management Activities Anxiety Level Cooperation Perception Interest in Health Problem Education Importance Does Patient Smoke tobacco or other substances Smoking Status Is Patient Diabetic Functional Assessment Recent Decline in Ability to Perform Culture/Amish/Doggy Daycare Activities Director Cultural/Amish Needs that may affect Treatment Plan Would you allow our hospital professor of education to meet you for the purpose of spiritual/ emotional support? Doggy Daycare Activities Director to contact place of christian Teaching: Wound Center Dressing Your Wound -Person Taught *Welcome to the Wound Center -Person Taught (a) 1 - + WC - Nurse 1 - General Ulcer Measurement Start: 12/23/23 09:02 Freq: Status: Active Protocol: Activity Type Activity Date Activity User E-sign Co-sign Detail Recorded Client Recorded Date Recorded By Document 12/23/23 09:03 DL [id number] 12/23/23 09:20 DL Document 12/30/23 11:21 KW [id number] 12/30/23 11:28 KW Document 01/06/24 09:33 KW [id number] 01/06/24 09:39 KW Document 01/09/24 08:58 RB [id number] 01/09/24 09:00 RB Document 01/13/24 09:04 BMF [id number] 01/13/24 09:13 BMF 12/23/23 12/30/23 01/06/24 09:03 11:21 09:33 Wound Center Nurse 1 #1 R Umanzor -Combined with other wound -Current Size (cm) - Length 2.8 3.5 3.8 -Current Size (cm) - Width 1.3 1.2 1.6 -Current Size (cm) - Depth 0.1 0.1 0.1 -Total Square Cm 3.64 4.20 6.08 -Date of Last Picture (Recall this field) -Photo Taken Yes -Epithelialization None Present Small 1-33% -Tunneling No -Undermining/Tunneling No -Circular Undermining No -Classification - Thickness Unclassifiable (Eschar Covered ) -Exudate Amt None Present Small Medium -Exudate Type Serosanguineous Serosanguineous -Wound Margin Thickened Distinct, Distinct, Outline Outline Attached Attached -Granulation Amt None Present (0 Small (1-33%) Small (1-33%) %) -Granulation Quality [place] Red -Slough/Fibrin Yes Yes -Necrosis Amt Large (67-100%) Large (67-100%) Large (67-100%) -Necrotic Tissue Type Eschar Adherent Slough Adherent Slough -Structure Exposed N/A -Texture (Kathleen-wound Skin Appearance) Scarring Assessed Assessed -Moisture (Kathleen-wound Skin Appearance) No Abnormality Assessed Assessed -Color (Kathleen-wound Skin Appearance) Erythema Assessed, Assessed, Erythema Erythema -Temperature (Kathleen-wound Skin No Abnormality No Abnormality No Abnormality Appearance) (Pt Warm) (Pt Warm) (Pt Warm) -Tenderness on Palpation (Kathleen-wound Yes No Skin Appearance) -Ulcer Cleansing Soap and Water Soap and Water Rinsed/ Irrigated with Saline -Foul Odor after Cleansing No No No -Anesthetic Used 5% Lidocaine 5% Lidocaine 5% Lidocaine Gel Gel Gel Lower Limb Edema Present Yes Right Calf (cm) 38 38.8 38.2 Right Ankle (cm) 23.5 23 23.5 Left Calf (cm) 39 Left Ankle (cm) 22.5 01/09/24 01/13/24 08:58 09:04 Wound Center Nurse 1 #1 R Umanzor -Combined with other wound No No -Current Size (cm) - Length 3.9 -Current Size (cm) - Width 1.4 -Current Size (cm) - Depth 0.1 -Total Square Cm 5.46 -Date of Last Picture (Recall this 01/13/24 field) -Photo Taken Yes -Epithelialization None Present -Tunneling No -Undermining/Tunneling No -Circular Undermining No -Classification - Thickness -Exudate Amt Medium Medium -Exudate Type Serosanguineous Serosanguineous -Wound Margin Thickened & Distinct, Rolled Under Outline Attached -Granulation Amt Medium (34-66%) None Present (0 %) -Granulation Quality [place] -Slough/Fibrin Yes Yes -Necrosis Amt Small (1-33%) Large (67-100%) -Necrotic Tissue Type Adherent Slough Eschar -Structure Exposed N/A -Texture (Kathleen-wound Skin Appearance) Assessed Assessed, Scarring -Moisture (Kathleen-wound Skin Appearance) Assessed Assessed -Color (Kathleen-wound Skin Appearance) Erythema, Assessed Hemosiderin Staining -Temperature (Kathleen-wound Skin No Abnormality No Abnormality Appearance) (Pt Warm) (Pt Warm) -Tenderness on Palpation (Kathleen-wound No No Skin Appearance) -Ulcer Cleansing Wound Cleanser Soap and Water -Foul Odor after Cleansing No No -Anesthetic Used 5% Lidocaine Gel Lower Limb Edema Present Yes Right Calf (cm) 36.2 35.7 Right Ankle (cm) 22.5 22.8 Left Calf (cm) Left Ankle (cm) WC - Nurse 2 - General Ulcer CM Notes Start: 12/23/23 09:02 Freq: Status: Active Protocol: Activity Type Activity Date Activity User E-sign Co-sign Detail Recorded Client Recorded Date Recorded By Document 12/23/23 09:59 [id number] 12/23/23 10:01 Document 12/30/23 11:58 BM [id number] 12/30/23 12:01 BM Document 01/06/24 10:04 [id number] 01/06/24 10:10 Document 01/13/24 09:40 [id number] 01/13/24 09:59 JF 12/23/23 12/30/23 01/06/24 09:59 11:58 10:04 Wound Center Nurse 2 #1 R Umanzor - 0959 11:59 10:05 -Correct Patient Yes Yes Yes -Correct Side, Site, Position Yes Yes Yes -Correct Procedure Yes Yes Yes -Procedure Performed Yes Yes Yes -Type of Procedure Debridement Debridement Debridement -Clinical Debridement Subcutaneous Subcutaneous Subcutaneous -Tissue Removed Subcutaneous Subcutaneous Subcutaneous -Post Debridement (cm) - Length 2.9 3.5 3.8 -Post Debridement (cm) - Width 1.5 1.5 1.7 -Post Debridement (cm) - Depth 0.1 0.1 0.1 -Total Square (Post) (cm) 4.35 5.25 6.46 -Area of Debridement (cm) - Length 2.9 3.5 3.8 -Area of Debridement (cm) - Width 1.5 1.5 1.7 -Total Square (Area) (cm) 4.35 5.25 6.46 -Tunneling No No No -Undermining/Tunneling No No No -Circular Undermining No No No -Wound/Ulcer Outcome Not Healed Not Healed Not Healed -Ulcer Cleansing Rinsed/ Rinsed/ Rinsed/ Irrigated with Irrigated with Irrigated with Saline Saline Saline -Foul Odor after Cleansing No No No -Bioengineered Tissue No No No -Bleeding Controlled with Pressure Pressure Pressure -Treatment Response Procedure Procedure Procedure Tolerated Well Tolerated Well Tolerated Well -Offloading No No -Debridement - Subq, 1st 20sq cm Yes Yes Yes Pain Scale: 0-10 Numeric Is Patient Pain Free? Yes Yes Yes 01/13/24 09:40 Wound Center Nurse 2 #1 R Umanzor -Time 09:45 -Correct Patient Yes -Correct Side, Site, Position Yes -Correct Procedure Yes -Procedure Performed Yes -Type of Procedure Debridement -Clinical Debridement Subcutaneous -Tissue Removed Subcutaneous -Post Debridement (cm) - Length 4.3 -Post Debridement (cm) - Width 1.6 -Post Debridement (cm) - Depth 0.1 -Total Square (Post) (cm) 6.88 -Area of Debridement (cm) - Length 4.3 -Area of Debridement (cm) - Width 1.6 -Total Square (Area) (cm) 6.88 -Tunneling No -Undermining/Tunneling No -Circular Undermining No -Wound/Ulcer Outcome Not Healed -Ulcer Cleansing Rinsed/ Irrigated with Saline -Foul Odor after Cleansing No -Bioengineered Tissue No -Bleeding Controlled with Pressure -Treatment Response Procedure Tolerated Well -Offloading No -Debridement - Subq, 1st 20sq cm Yes Pain Scale: 0-10 Numeric Is Patient Pain Free? Yes WC - Nurse 3 - General Ulcer D/C NN Start: 12/23/23 09:02 Freq: Status: Active Protocol: Activity Type Activity Date Activity User E-sign Co-sign Detail Recorded Client Recorded Date Recorded By Document 12/23/23 10:16 DL [id number] 12/23/23 10:17 DL Document 12/30/23 12:13 JF [id number] 12/30/23 12:13 JF Document 01/06/24 10:15 KW [id number] 01/06/24 10:16 KW Document 01/09/24 08:58 RB [id number] 01/09/24 09:00 RB Document 01/13/24 11:45 JF [id number] 01/13/24 11:45 JF 12/23/23 12/30/23 01/06/24 10:16 12:13 10:15 Wound Care Center Nurse 3 #1 R Umanzor -Ulcer Cleansing Rinsed/ Rinsed/ Irrigated with Irrigated with Saline Saline -Foul Odor after Cleansing No No -Primary Dressing Applied C Hydrogel ($) Aquacel AG 4x4 -Other Dressing santyl ointment -Primary Dressing Covered/Secured with Dry Gauze, Dry Gauze & Dry Gauze & Secured with Roll Gauze Roll Gauze, Tape Secured with Tape -Aquacel AG 4x4 1 -Mepilex Border -Wound Comment(s) excel sap dressing from patient's own supply. Right -Multi-Layered Wrap Application Multi-Layer Comp - Right ($ ) -Tubular Bandage Single Layer Single Layer -Size of Tubigrip Used Size F Size D -Size D ($) 0 -Size F ($) 1 Treatment Response Procedure Tolerated Well Vital Signs Temperature (97.8 F-99.1 F) Temperature Source Pulse Rate (60-100) Pulse Location Respiratory Rate (12-18) Respiratory rate source Blood Pressure (90/60-120/80) Blood Pressure Mean (mm Hg) Source Position Blood Pressure Location Pain Scale: 0-10 Numeric Is Patient Pain Free? Yes Yes Yes WC - Visit Discharge Discharge Condition Stable Stable Stable Ambulatory Status Ambulatory Ambulatory Ambulatory Transportation Private Auto Private Auto Private Auto Medication Reconcilliation completed & Yes No provided to patient/care provider Clinical Summary of Care Provided Yes Yes Notes: pt to use Santyl when available 01/09/24 01/13/24 08:58 11:45 Wound Care Center Nurse 3 #1 R Umanzor -Ulcer Cleansing Wound Cleanser Rinsed/ Irrigated with Saline -Foul Odor after Cleansing No -Primary Dressing Applied Mepilex Border -Other Dressing aquacel AG -Primary Dressing Covered/Secured with Dry Gauze Dry Gauze -Aquacel AG 4x4 -Mepilex Border 1 -Wound Comment(s) Right -Multi-Layered Wrap Application Multi-Layer Comp - Right ($ ) -Tubular Bandage Double Layer -Size of Tubigrip Used Size D -Size D ($) 2 -Size F ($) Treatment Response Procedure Tolerated Well Vital Signs Temperature (97.8 F-99.1 F) 97.6 F L Temperature Source Temporal Pulse Rate (60-100) 65 Pulse Location Monitor Respiratory Rate (12-18) 18 Respiratory rate source Observation Blood Pressure (90/60-120/80) 145/72 H Blood Pressure Mean (mm Hg) 96 Source Monitor Position Semi-Fowlers Blood Pressure Location Left Arm Pain Scale: 0-10 Numeric Is Patient Pain Free? Yes Yes WC - Visit Discharge Discharge Condition Stable Stable Ambulatory Status Ambulatory Ambulatory Transportation Private Auto Private Auto Medication Reconcilliation completed & No Yes provided to patient/care provider Clinical Summary of Care Provided Yes Yes Notes: Assessment/Plan Assessment/Plan (1) Ulcer of right medial lower extremity with fat layer exposed: CODE(S): L97.812 - Non-pressure chronic ulcer of other part of right lower leg with fat layer exposed (2) DM type 2 (diabetes mellitus, type 2): CODE(S): E11.9 - Type 2 diabetes mellitus without complications PLAN: Plan Patient evaluated at the wound healing center today. Wound care - Restart Santyl,place moistened gauze and cover with ABD/ Ecxcel SAP daily. Compression - Double tubigrip. Encouraged him to keep his leg elevated as much as possible to help prevent swelling. Reviewed arterial and venous studies. He completed the antibiotics that his PCP placed him on. Follow up one week.
--- NOTE | 2024-01-13 13:01 | WC ---
PHOTO 01/13/24 RIGHT [place]
== END 2024-01-16 23:59 | disposition home or self-care (01) ==
LOC: WC 09:15
PROVIDERS: PCP Nurse Practitioner Family; Referring Provider Nurse Practitioner Family; Visit Provider Nurse Practitioner Family
DX: E11.622 Type 2 diabetes mellitus with other skin ulcer (principal); L97.812 Non-pressure chronic ulcer of other part of right lower leg with fat layer exposed; E11.40 Type 2 diabetes mellitus with diabetic neuropathy, unspecified; Z79.84 Long term (current) use of oral hypoglycemic drugs; Z79.85 Long-term (current) use of injectable non-insulin antidiabetic drugs; R60.0 Localized edema; Z87.442 Personal history of urinary calculi; I77.1 Stricture of artery
CPT/HCPCS: 11042; 29581; 93923; 93970; 99214; G0463

== ENCOUNTER 2024-02-05 14:30 | Outpatient (RCR) | payer MEDICARE, SELFPAY ==
[2024-01-17 00:50] VITALS: BP 170/78; PULSE 68; RESP 16; TEMP 35.9; BMI 30.3
[2024-01-20 08:43] VITALS: BP 151/79; PULSE 73; RESP 18; TEMP 36.1; BMI 30.3
--- NOTE | 2024-01-20 12:30 | PN.PCM_ITS ---
History of Present Illness Date of Service: 01/20/24 Chief Complaint: Right anterior leg ulcer History of Wound: 68 year old male presents with ulcer on his right anterior leg which he obtained in August or September after bumping it on a piece of equipment when he climbing up in it. When he noticed it wasn't healing, he went to his PCP, Dr. Salter. He was placed on Keflex and Bactrim and referred to us at the wound center. He has been placing triple antibiotic ointment on it, without much improvement in his ulcer. He has a medical history of DM type 2, kidney stones, tonsils removed when he was 32. Today he denies fever, chills, nausea or vomiting. He comes in for further evaluation of his right anterior leg ulcer. Progress of Wound: He continues to have increased discomfort of the ulcer on his right anterior leg. His ulcer is larger and there is a purple hue surrounding the ulcer. There continues to be increased non viable, fibrous tissue present on the ulcer and he does not tolerate the debridement. Objective Data Objective Data Vital Signs: Vital Signs Temp Pulse Resp BP 97 F L 73 18 151/79 H 01/20/24 08:43 01/20/24 08:43 01/20/24 08:43 01/20/24 08:43 Weight: 230 lb 1.011 oz Body Mass Index (BMI) 30.3 Charges/Coding Procedures Integumentary 111xxx-113xx: 30858 Crystal subq tissue 20 sq cm/< Debridement Note Debridement Note Wound debrided: anterior leg ulcer Laterality: Right Wound Grade/Stage: unstageable at this time Type of Debridement: Excisional debridement Anesthesia Used: 5% Lidocaine Gel Depth: in the subcutaneous layer Percentage of wound debrided: 100 Instrument Used: #15 blade, Forceps and - (Misonix aquasonic debrider ) Tissue Removed: Non viable tissue and slough Severity: Fat Layer Exposed Amount of bleeding with debridement: Mild Bleeding Controlled with: Pressure and Compression and gauze Patient tolerated procedure: Patient did not tolerate procedure well Post-Debridement Measurements and Additional Note: Post-Debridement Measurements/Treatment [place] - Nurse 1 - General Ulcer Assessment Start: 01/20/24 08:43 Freq: Status: Active Protocol: NIHARIKA Activity Type Activity Date Activity User E-sign Co-sign Detail Recorded Client Recorded Date Recorded By Document 01/20/24 08:43 KW [id number] 01/20/24 08:50 01/20/24 08:43 - Today's Visit Information Type of service Follow-up Visit (Physician/CORE JAVA SOFTWARE ENGINEER ) Arrival Mode Ambulatory Transfer Assistance Stretcher Patient Identification Verified (Name & Yes ) Patient Requires Transmission-Based No Precautions Height and Weight Body Mass Index (BMI) 30.3 BMI Classification Obese Vital Signs Temperature (97.8 F-99.1 F) 97 F L Temperature Source Temporal Pulse Rate (60-100) 73 Pulse Location Monitor Respiratory Rate (12-18) 18 Respiratory rate source Observation Blood Pressure (90/60-120/80) 151/79 H Blood Pressure Mean (mm Hg) 103 Source Monitor History Since Last Visit- (Skip if this is Patient's initial visit) Have you changed medications since your No last visit? Any new allergies or adverse reactions No Had a fall/change in ADL's that may No increase risk of falls Signs or symptoms of abuse and/or No neglect since last visit Have you been in the hospital since your No last visit? Has dressing in place as prescribed Yes Has compression in place as prescribed Yes Has offloadiing in place as prescribed N/A Experienced any changes in pain level or No management Pain Scale: 0-10 Numeric Is Patient Pain Free? Yes - Nurse 1 - General Ulcer Measurement Start: 01/20/24 08:43 Freq: Status: Active Protocol: Activity Type Activity Date Activity User E-sign Co-sign Detail Recorded Client Recorded Date Recorded By Document 01/20/24 08:43 [id number] 01/20/24 08:50 01/20/24 08:43 Wound Center Nurse 1 #1 R Umanzor -Current Size (cm) - Length 4.6 -Current Size (cm) - Width 1.7 -Current Size (cm) - Depth 0.1 -Total Square Cm 7.82 -Photo Taken Yes -Exudate Amt Medium -Exudate Type Serosanguineous -Wound Margin Distinct, Outline Attached -Granulation Amt Small (1-33%) -Granulation Quality [place] -Necrosis Amt Large (67-100%) -Necrotic Tissue Type Adherent Slough -Structure Exposed N/A -Texture (Kathleen-wound Skin Appearance) Scarring -Moisture (Kathleen-wound Skin Appearance) No Abnormality -Color (Kathleen-wound Skin Appearance) Erythema -Temperature (Kathleen-wound Skin No Abnormality Appearance) (Pt Warm) -Tenderness on Palpation (Kathleen-wound No Skin Appearance) -Ulcer Cleansing Soap and Water -Foul Odor after Cleansing No -Anesthetic Used 5% Lidocaine Gel Right Calf (cm) 35.8 Right Ankle (cm) 22 - Nurse 2 - General Ulcer CM Notes Start: 01/20/24 08:43 Freq: Status: Active Protocol: Activity Type Activity Date Activity User E-sign Co-sign Detail Recorded Client Recorded Date Recorded By Document 01/20/24 09:18 [id number] 01/20/24 09:27 01/20/24 09:18 Wound Center Nurse 2 #1 R Umanzor -Time 09:18 -Correct Patient Yes -Correct Side, Site, Position Yes -Correct Procedure Yes -Procedure Performed Yes -Type of Procedure Debridement -Clinical Debridement Subcutaneous -Tissue Removed Subcutaneous -Post Debridement (cm) - Length 4.9 -Post Debridement (cm) - Width 1.9 -Post Debridement (cm) - Depth 0.1 -Total Square (Post) (cm) 9.31 -Area of Debridement (cm) - Length 4.9 -Area of Debridement (cm) - Width 1.9 -Total Square (Area) (cm) 9.31 -Tunneling No -Undermining/Tunneling No -Circular Undermining No -Wound/Ulcer Outcome Not Healed -Ulcer Cleansing Rinsed/ Irrigated with Saline -Foul Odor after Cleansing No -Bioengineered Tissue No -Bleeding Controlled with Pressure -Treatment Response Procedure Tolerated Well -Offloading No -Debridement - Subq, 1st 20sq cm Yes Pain Scale: 0-10 Numeric Is Patient Pain Free? Yes - Nurse 3 - General Ulcer D/C NN Start: 01/20/24 08:43 Freq: Status: Active Protocol: Activity Type Activity Date Activity User E-sign Co-sign Detail Recorded Client Recorded Date Recorded By Document 01/20/24 09:39 [facility] [id number] 01/20/24 09:40 [facility] 01/20/24 09:39 Wound Care Center Nurse 3 #1 R Umanzor -Ulcer Cleansing Rinsed/ Irrigated with Saline -Foul Odor after Cleansing No -Primary Dressing Applied Mepilex Border -Other Dressing hydrogel -Mepilex Border 1 Right -Tubular Bandage Double Layer -Size of Tubigrip Used Size E -Size E ($) 1 Treatment Response Procedure Tolerated Well Pain Scale: 0-10 Numeric Is Patient Pain Free? Yes WC - Visit Discharge Discharge Condition Stable Ambulatory Status Ambulatory Transportation Private Auto Assessment/Plan Assessment/Plan (1) Ulcer of right medial lower extremity with fat layer exposed: CODE(S): L97.812 - Non-pressure chronic ulcer of other part of right lower leg with fat layer exposed (2) DM type 2 (diabetes mellitus, type 2): CODE(S): E11.9 - Type 2 diabetes mellitus without complications PLAN: Plan Patient evaluated at the wound healing center today. Wound care - Continue Santyl,place moistened gauze and cover with ABD/ Melbeta SAP daily. Wash ulcer with soap and water at the time of the dressing changes. Compression - Double tubigrip. Encouraged him to keep his leg elevated as much as possible to help prevent swelling. Reviewed arterial and venous studies. He completed the antibiotics that his PCP placed him on. With his ulcer being larger and his significant amount of discomfort he has been experiencing, may need to consider Pyoderma gangrenosum as a differential diagnosis, will continue to monitor closely. Follow up one week.
--- NOTE | 2024-01-22 13:02 | WC ---
PHOTO 01/20/24 RIGHT HELTON
[2024-01-27 08:42] VITALS: BP 152/79; PULSE 70; RESP 18; TEMP 36.4; BMI 30.3
--- NOTE | 2024-01-27 09:54 | PN.PCM_ITS ---
History of Present Illness Date of Service: 01/27/24 Chief Complaint: Right anterior leg ulcer History of Wound: 68 year old male presents with ulcer on his right anterior leg which he obtained in August or September after bumping it on a piece of equipment when he climbing up in it. When he noticed it wasn't healing, he went to his PCP, Dr. Salter. He was placed on Keflex and Bactrim and referred to us at the wound center. He has been placing triple antibiotic ointment on it, without much improvement in his ulcer. He has a medical history of DM type 2, kidney stones, tonsils removed when he was 32. Today he denies fever, chills, nausea or vomiting. He comes in for further evaluation of his right anterior leg ulcer. Progress of Wound: He continues to have discomfort of the ulcer on his right anterior leg. His ulcer is larger and there is a purple hue surrounding the ulcer. There continues to be non viable, fibrous tissue present on the ulcer and he experiences a lot of discomfort with the debridement. Ulcer is stable, with no improvement. A wound culture was obtained today.? A positive culture will necessitate antibiotic therapy. Objective Data Objective Data Vital Signs: Vital Signs Temp Pulse Resp BP O2 Del Method 97.6 F L 70 18 152/79 H Room Air 01/27/24 08:42 01/27/24 08:42 01/27/24 08:42 01/27/24 08:42 01/27/24 08:42 Oxygen Delivery Method Room Air Weight: 230 lb 1.011 oz Body Mass Index (BMI) 30.3 Charges/Coding Procedures Integumentary 111xxx-113xx: 86025 Crystal subq tissue 20 sq cm/< Physical Exam Const alert and oriented x3 General Appearance: cooperative HEENT normocephalic Resp normal respiratory effort Effort and Inspection: able to speak in complete sentences Cardio regular rate Extremity normal capillary refill Skin Wound Narrative: Right anterior leg ulcer which continues to have a lot of non viable tissue in place, even with him using Santyl. Neuro CN's II-XII intact bilaterally Psych affect normal Debridement Note Debridement Note Wound debrided: anterior leg ulcer Laterality: Right Wound Grade/Stage: unstageable at this time Type of Debridement: Excisional debridement Anesthesia Used: 5% Lidocaine Gel Depth: in the subcutaneous layer Percentage of wound debrided: 100 Instrument Used: 5mm curette Tissue Removed: Non viable tissue and slough Severity: Fat Layer Exposed Amount of bleeding with debridement: Mild Bleeding Controlled with: Pressure and Compression and gauze Patient tolerated procedure: Patient tolerated procedure well Post-Debridement Measurements and Additional Note: Post-Debridement Measurements/Treatment - Nurse 1 - General Ulcer Assessment Start: 01/20/24 08:43 Freq: Status: Active Protocol: NIHARIKA Activity Type Activity Date Activity User E-sign Co-sign Detail Recorded Client Recorded Date Recorded By Document 01/20/24 08:43 KW [id number] 01/20/24 08:50 KW Document 01/27/24 08:42 KW [id number] 01/27/24 08:48 KW 01/20/24 01/27/24 08:43 08:42 WC - Today's Visit Information Type of service Follow-up Visit Follow-up Visit (Physician/VENEER TRIMMER (Physician/VENEER TRIMMER ) ) Arrival Mode Ambulatory Ambulatory Transfer Assistance Stretcher Patient Identification Verified (Name & Yes Yes ) Patient Requires Transmission-Based No Precautions Height and Weight Body Mass Index (BMI) 30.3 30.3 BMI Classification Obese Obese Vital Signs Temperature (97.8 F-99.1 F) 97 F L 97.6 F L Temperature Source Temporal Temporal Pulse Rate (60-100) 73 70 Pulse Location Monitor Monitor Respiratory Rate (12-18) 18 18 Respiratory rate source Observation Observation Oxygen Delivery Method Room Air Blood Pressure (90/60-120/80) 151/79 H 152/79 H Blood Pressure Mean (mm Hg) 103 103 Source Monitor Monitor Position Sitting Blood Pressure Location Left Arm History Since Last Visit- (Skip if this is Patient's initial visit) Have you changed medications since your No No last visit? Any new allergies or adverse reactions No No Had a fall/change in ADL's that may No No increase risk of falls Signs or symptoms of abuse and/or No No neglect since last visit Have you been in the hospital since your No No last visit? Has dressing in place as prescribed Yes Yes Has compression in place as prescribed Yes Yes Has offloadiing in place as prescribed N/A N/A Experienced any changes in pain level or No No management Left Footwear Regular Shoe Right Footwear Regular Shoe Pain Scale: 0-10 Numeric Is Patient Pain Free? Yes Yes - Nurse 1 - General Ulcer Measurement Start: 01/20/24 08:43 Freq: Status: Active Protocol: Activity Type Activity Date Activity User E-sign Co-sign Detail Recorded Client Recorded Date Recorded By Document 01/20/24 08:43 KW [id number] 01/20/24 08:50 KW Document 01/27/24 08:42 KW [id number] 01/27/24 08:48 KW 01/20/24 01/27/24 08:43 08:42 Wound Center Nurse 1 #1 R Umanzor -Current Size (cm) - Length 4.6 5.1 -Current Size (cm) - Width 1.7 1.7 -Current Size (cm) - Depth 0.1 0.1 -Total Square Cm 7.82 8.67 -Photo Taken Yes -Exudate Amt Medium -Exudate Type Serosanguineous -Wound Margin Distinct, Outline Attached -Granulation Amt Small (1-33%) -Granulation Quality [place] -Necrosis Amt Large (67-100%) -Necrotic Tissue Type Adherent Slough -Structure Exposed N/A -Texture (Kathleen-wound Skin Appearance) Scarring -Moisture (Kathleen-wound Skin Appearance) No Abnormality -Color (Kathleen-wound Skin Appearance) Erythema -Temperature (Kathleen-wound Skin No Abnormality Appearance) (Pt Warm) -Tenderness on Palpation (Kathleen-wound No Skin Appearance) -Ulcer Cleansing Soap and Water -Foul Odor after Cleansing No -Anesthetic Used 5% Lidocaine Gel Right Calf (cm) 35.8 36.6 Right Ankle (cm) 22 22.8 WC - Nurse 2 - General Ulcer CM Notes Start: 01/20/24 08:43 Freq: Status: Active Protocol: Activity Type Activity Date Activity User E-sign Co-sign Detail Recorded Client Recorded Date Recorded By Document 01/20/24 09:18 JF [id number] 01/20/24 09:27 Document 01/27/24 08:56 [id number] 01/27/24 09:03 JF 01/20/24 01/27/24 09:18 08:56 Wound Center Nurse 2 #1 R Umanzor -Time 09:18 09:01 -Correct Patient Yes Yes -Correct Side, Site, Position Yes Yes -Correct Procedure Yes Yes -Procedure Performed Yes Yes -Type of Procedure Debridement Debridement -Clinical Debridement Subcutaneous Subcutaneous -Tissue Removed Subcutaneous Subcutaneous -Post Debridement (cm) - Length 4.9 5.1 -Post Debridement (cm) - Width 1.9 2.0 -Post Debridement (cm) - Depth 0.1 0.1 -Total Square (Post) (cm) 9.31 10.20 -Area of Debridement (cm) - Length 4.9 5.1 -Area of Debridement (cm) - Width 1.9 2 -Total Square (Area) (cm) 9.31 10.2 -Tunneling No No -Undermining/Tunneling No No -Circular Undermining No No -Wound/Ulcer Outcome Not Healed Not Healed -Ulcer Cleansing Rinsed/ Rinsed/ Irrigated with Irrigated with Saline Saline -Foul Odor after Cleansing No No -Bioengineered Tissue No No -Bleeding Controlled with Pressure Pressure -Treatment Response Procedure Procedure Tolerated Well Tolerated Well -Offloading No No -Debridement - Subq, 1st 20sq cm Yes Yes Pain Scale: 0-10 Numeric Is Patient Pain Free? Yes Yes - Nurse 3 - General Ulcer D/C NN Start: 01/20/24 08:43 Freq: Status: Active Protocol: Activity Type Activity Date Activity User E-sign Co-sign Detail Recorded Client Recorded Date Recorded By Document 01/20/24 09:39 [facility] [id number] 01/20/24 09:40 [facility] Document 01/27/24 09:08 [facility] [id number] 01/27/24 09:09 [facility] 01/20/24 01/27/24 09:39 09:08 Wound Care Center Nurse 3 #1 R Umanzor -Ulcer Cleansing Rinsed/ Rinsed/ Irrigated with Irrigated with Saline Saline -Foul Odor after Cleansing No No -Primary Dressing Applied Mepilex Border Mepilex Border -Other Dressing hydrogel hydrogel -Mepilex Border 1 1 Right -Tubular Bandage Double Layer Double Layer -Size of Tubigrip Used Size E Size E -Size E ($) 1 2 Treatment Response Procedure Procedure Tolerated Well Tolerated Well Pain Scale: 0-10 Numeric Is Patient Pain Free? Yes Yes - Visit Discharge Discharge Condition Stable Stable Ambulatory Status Ambulatory Ambulatory Transportation Private Auto Private Auto Assessment/Plan Assessment/Plan (1) Ulcer of right medial lower extremity with fat layer exposed: CODE(S): L97.812 - Non-pressure chronic ulcer of other part of right lower leg with fat layer exposed (2) DM type 2 (diabetes mellitus, type 2): CODE(S): E11.9 - Type 2 diabetes mellitus without complications PLAN: Plan Patient evaluated at the wound healing center today. Wound care - Continue Santyl,place moistened gauze and cover with ABD/ [place] SAP daily. Wash ulcer with soap and water at the time of the dressing changes. Compression - Double tubigrip. Encouraged him to keep his leg elevated as much as possible to help prevent swelling. A wound culture was not done previously because he had been on antibiotics from his PCP. A wound culture was obtained today.? A positive culture will necessitate antibiotic therapy. With his ulcer being larger and his significant amount of discomfort he has been experiencing, may need to consider Pyoderma gangrenosum as a differential diagnosis, will continue to monitor closely. Follow up one week.
--- NOTE | 2024-01-28 09:58 | WC ---
PHOTO RIGHT HELTON 01/27/2024
[2024-02-05 14:28] VITALS: BP 158/82; PULSE 65; RESP 18; TEMP 36.2; BMI 30.3
--- NOTE | 2024-02-05 16:22 | PN.PCM_ITS ---
History of Present Illness Date of Service: 02/05/24 Chief Complaint: Right anterior leg ulcer History of Wound: 68 year old male presents with ulcer on his right anterior leg which he obtained in August or September after bumping it on a piece of equipment when he climbing up in it. When he noticed it wasn't healing, he went to his PCP, Dr. Salter. He was placed on Keflex and Bactrim and referred to us at the wound center. He has been placing triple antibiotic ointment on it, without much improvement in his ulcer. He has a medical history of DM type 2, kidney stones, tonsils removed when he was 32. Wound culture from 01/27/24 positive for Serratia marcescens and Citrobacter freundii. He was started on Levofloxacin to treat these. Today he denies fever, chills, nausea or vomiting. Progress of Wound: He continues to have discomfort of the ulcer on his right anterior leg. His ulcer is larger and there is a purple hue surrounding the ulcer. There continues to be non viable, fibrous tissue present on the ulcer and he experiences a lot of discomfort in this area. Objective Data Objective Data Vital Signs: Vital Signs Temp Pulse Resp BP O2 Del Method 97.1 F L 65 18 158/82 H Room Air 02/05/24 14:28 02/05/24 14:28 02/05/24 14:28 02/05/24 14:28 02/05/24 14:28 Oxygen Delivery Method Room Air Weight: 230 lb 1.011 oz Body Mass Index (BMI) 30.3 Lab / Micro Data Micro: Microbiology 01/27/24 09:00 Wound - Leg, Right Gram Stain - Final 01/27/24 09:00 Wound - Leg, Right Wound Culture - Final Serratia marcescens Citrobacter freundii 01/27/24 09:00 Wound - Leg, Right Anaerobic Culture - Final No anaerobic bacteria isolated. Charges/Coding Visit Charges Office Visits / Consults: 28160 OV L3 Est 20min Physical Exam Const alert and oriented x3 General Appearance: cooperative HEENT normocephalic Resp normal respiratory effort Effort and Inspection: able to speak in complete sentences Cardio regular rate Extremity normal capillary refill Skin Wound Narrative: Right anterior leg ulcer which continues to have a lot of non viable tissue in place, even with him using Santyl. Neuro CN's II-XII intact bilaterally Psych affect normal Debridement Note Debridement Note No debridement was completed: No debridement was completed today Post-Debridement Measurements and Additional Note: Post-Debridement Measurements/Treatment - Nurse 1 - General Ulcer Assessment Start: 01/20/24 08:43 Freq: Status: Active Protocol: [email or web address] Activity Type Activity Date Activity User E-sign Co-sign Detail Recorded Client Recorded Date Recorded By Document 01/20/24 08:43 KW [id number] 01/20/24 08:50 KW Document 01/27/24 08:42 KW [id number] 01/27/24 08:48 KW Document 02/05/24 14:28 KW [id number] 02/05/24 14:32 KW 01/20/24 01/27/24 02/05/24 08:43 08:42 14:28 - Today's Visit Information Type of service Follow-up Visit Follow-up Visit Follow-up Visit (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 (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 (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 ) ) ) Arrival Mode Ambulatory Ambulatory Ambulatory Transfer Assistance Stretcher Patient Identification Verified (Name & Yes Yes Yes ) Patient Requires Transmission-Based No Precautions Height and Weight Body Mass Index (BMI) 30.3 30.3 30.3 BMI Classification Obese Obese Obese Vital Signs Temperature (97.8 F-99.1 F) 97 F L 97.6 F L 97.1 F L Temperature Source Temporal Temporal Temporal Pulse Rate (60-100) 73 70 65 Pulse Location Monitor Monitor Monitor Respiratory Rate (12-18) 18 18 18 Respiratory rate source Observation Observation Observation Oxygen Delivery Method Room Air Room Air Blood Pressure (90/60-120/80) 151/79 H 152/79 H 158/82 H Blood Pressure Mean (mm Hg) 103 103 107 Source Monitor Monitor Monitor Position Sitting Semi-Fowlers Blood Pressure Location Left Arm Left Arm History Since Last Visit- (Skip if this is Patient's initial visit) Have you changed medications since your No No No last visit? Any new allergies or adverse reactions No No No Had a fall/change in ADL's that may No No No increase risk of falls Signs or symptoms of abuse and/or No No No neglect since last visit Have you been in the hospital since your No No No last visit? Has dressing in place as prescribed Yes Yes Yes Has compression in place as prescribed Yes Yes Yes Has offloadiing in place as prescribed N/A N/A N/A Experienced any changes in pain level or No No No management Left Footwear Regular Shoe Regular Shoe Right Footwear Regular Shoe Regular Shoe Pain Scale: 0-10 Numeric Is Patient Pain Free? Yes Yes Yes - Nurse 1 - General Ulcer Measurement Start: 01/20/24 08:43 Freq: Status: Active Protocol: Activity Type Activity Date Activity User E-sign Co-sign Detail Recorded Client Recorded Date Recorded By Document 01/20/24 08:43 KW [id number] 01/20/24 08:50 KW Document 01/27/24 08:42 KW [id number] 01/27/24 08:48 KW Document 02/05/24 14:28 KW [id number] 02/05/24 14:32 KW 01/20/24 01/27/24 02/05/24 08:43 08:42 14:28 Wound Center Nurse 1 #1 R Umanzor -Current Size (cm) - Length 4.6 5.1 6 -Current Size (cm) - Width 1.7 1.7 1.8 -Current Size (cm) - Depth 0.1 0.1 0.1 -Total Square Cm 7.82 8.67 10.8 -Photo Taken Yes -Exudate Amt Medium Medium -Exudate Type Serosanguineous Serosanguineous -Wound Margin Distinct, Distinct, Outline Outline Attached Attached -Granulation Amt Small (1-33%) Small (1-33%) -Granulation Quality [place] -Necrosis Amt Large (67-100%) Large (67-100%) -Necrotic Tissue Type Adherent Slough Adherent Slough -Structure Exposed N/A -Texture (Kathleen-wound Skin Appearance) Scarring Assessed -Moisture (Kathleen-wound Skin Appearance) No Abnormality Assessed -Color (Kathleen-wound Skin Appearance) Erythema Assessed -Temperature (Kathleen-wound Skin No Abnormality No Abnormality Appearance) (Pt Warm) (Pt Warm) -Tenderness on Palpation (Kathleen-wound No Yes Skin Appearance) -Ulcer Cleansing Soap and Water Rinsed/ Irrigated with Saline -Foul Odor after Cleansing No No -Anesthetic Used 5% Lidocaine 5% Lidocaine Gel Gel Right Calf (cm) 35.8 36.6 39 Right Ankle (cm) 22 22.8 23.5 GARDENIA - Nurse 2 - General Ulcer CM Notes Start: 01/20/24 08:43 Freq: Status: Active Protocol: Activity Type Activity Date Activity User E-sign Co-sign Detail Recorded Client Recorded Date Recorded By Document 01/20/24 09:18 [id number] 01/20/24 09:27 Document 01/27/24 08:56 [id number] 01/27/24 09:03 Document 02/05/24 14:59 [id number] 02/05/24 15:05 01/20/24 01/27/24 02/05/24 09:18 08:56 14:59 Wound Center Nurse 2 #1 R Umanzor -Time 09:18 09:01 15:04 -Correct Patient Yes Yes Yes -Correct Side, Site, Position Yes Yes Yes -Correct Procedure Yes Yes -Procedure Performed Yes Yes -Type of Procedure Debridement Debridement -Clinical Debridement Subcutaneous Subcutaneous -Tissue Removed Subcutaneous Subcutaneous -Post Debridement (cm) - Length 4.9 5.1 -Post Debridement (cm) - Width 1.9 2.0 -Post Debridement (cm) - Depth 0.1 0.1 -Total Square (Post) (cm) 9.31 10.20 -Area of Debridement (cm) - Length 4.9 5.1 -Area of Debridement (cm) - Width 1.9 2 -Total Square (Area) (cm) 9.31 10.2 -Tunneling No No -Undermining/Tunneling No No -Circular Undermining No No -Wound/Ulcer Outcome Not Healed Not Healed Not Healed -Ulcer Cleansing Rinsed/ Rinsed/ Irrigated with Irrigated with Saline Saline -Foul Odor after Cleansing No No -Bioengineered Tissue No No -Bleeding Controlled with Pressure Pressure -Treatment Response Procedure Procedure Tolerated Well Tolerated Well -Offloading No No -Debridement - Subq, 1st 20sq cm Yes Yes -Wound Comment(s) No debridement, measures 5.5 2.3 0.1 Pain Scale: 0-10 Numeric Is Patient Pain Free? Yes Yes Yes WC - Nurse 3 - General Ulcer D/C NN Start: 01/20/24 08:43 Freq: Status: Active Protocol: Activity Type Activity Date Activity User E-sign Co-sign Detail Recorded Client Recorded Date Recorded By Document 01/20/24 09:39 [facility] [id number] 01/20/24 09:40 BM Document 01/27/24 09:08 [facility] [id number] 01/27/24 09:09 BMF Document 02/05/24 15:09 [facility] [id number] 02/05/24 15:10 BMF 01/20/24 01/27/24 02/05/24 09:39 09:08 15:09 Wound Care Center Nurse 3 #1 R Umanzor -Ulcer Cleansing Rinsed/ Rinsed/ Rinsed/ Irrigated with Irrigated with Irrigated with Saline Saline Saline -Foul Odor after Cleansing No No No -Primary Dressing Applied Mepilex Border Mepilex Border Mepilex Border -Other Dressing hydrogel hydrogel hydrogel -Other Covering drsg per kw [place] setter -Mepilex Border 1 1 1 Right -Tubular Bandage Double Layer Double Layer Double Layer -Size of Tubigrip Used Size E Size E Size E -Size E ($) 1 2 2 Treatment Response Procedure Procedure Procedure Tolerated Well Tolerated Well Tolerated Well Pain Scale: 0-10 Numeric Is Patient Pain Free? Yes Yes Yes WC - Visit Discharge Discharge Condition Stable Stable Stable Ambulatory Status Ambulatory Ambulatory Ambulatory Transportation Private Auto Private Auto Private Auto Assessment/Plan Assessment/Plan (1) Ulcer of right medial lower extremity with fat layer exposed: CODE(S): L97.812 - Non-pressure chronic ulcer of other part of right lower leg with fat layer exposed (2) DM type 2 (diabetes mellitus, type 2): CODE(S): E11.9 - Type 2 diabetes mellitus without complications PLAN: Plan Patient evaluated at the wound healing center today. Wound care - Continue Santyl until it is gone,place moistened gauze and cover with ABD/ [place] SAP daily. When that is finished start Gentamicin ointment covered with gauze 1-2 times daily. Wash ulcer with soap and water at the time of the dressing changes. Compression - Double tubigrip. Encouraged him to keep his leg elevated as much as possible to help prevent swelling. Wound culture from 01/27/24 positive for Serratia marcescens and Citrobacter freundii. He was started on Levofloxacin to treat these. With his ulcer being larger and his significant amount of discomfort he has been experiencing, may need to consider Pyoderma gangrenosum as a differential diagnosis, will continue to monitor closely. Follow up one week.
== END 2024-02-15 23:59 | disposition home or self-care (01) ==
LOC: WC 14:30
PROVIDERS: PCP Nurse Practitioner Family; Referring Provider Nurse Practitioner Family; Visit Provider Nurse Practitioner Family
DX: L97.812 Non-pressure chronic ulcer of other part of right lower leg with fat layer exposed (principal); E11.9 Type 2 diabetes mellitus without complications; Z87.442 Personal history of urinary calculi; B96.89 Other specified bacterial agents as the cause of diseases classified elsewhere
CPT/HCPCS: 11042; 87070; 87075; 87077; 87186; 87205; 99213; G0463

== ENCOUNTER 2024-03-09 08:45 | Outpatient (RCR) | payer MEDICARE, SELFPAY ==
[2024-02-16 00:29] VITALS: BP 170/78; PULSE 68; RESP 16; TEMP 35.9; BMI 30.3
[2024-02-17 08:40] VITALS: BP 145/72; PULSE 78; RESP 16; TEMP 35.7; BMI 30.3
--- NOTE | 2024-02-17 09:07 | PCM.WC.PN ---
History of Present Illness Date of Service: 02/17/24 Chief Complaint: Right anterior leg ulcer History of Wound: 68 year old male presents with ulcer on his right anterior leg which he obtained in August or September after bumping it on a piece of equipment when he climbing up in it. When he noticed it wasn't healing, he went to his PCP, Dr. Salter. He was placed on Keflex and Bactrim and referred to us at the wound center. He has been placing triple antibiotic ointment on it, without much improvement in his ulcer. He has a medical history of DM type 2, kidney stones, tonsils removed when he was 32. Today he denies fever, chills, nausea or vomiting. He comes in for further evaluation of his right anterior leg ulcer. Progress of Wound: He continues to have discomfort of the ulcer on his right anterior leg. His ulcer is stable and there is a purple hue surrounding the ulcer. There continues to be non viable, fibrous tissue present on the ulcer and he experiences a lot of discomfort in this area. Objective Data Objective Data Vital Signs: Vital Signs Temp Pulse Resp BP 96.2 F L 78 16 145/72 H 02/17/24 08:40 02/17/24 08:40 02/17/24 08:40 02/17/24 08:40 Weight: 230 lb 1.011 oz Body Mass Index (BMI) 30.3 Charges/Coding Visit Charges Office Visits / Consults: 10588 OV L3 Est 20min Physical Exam Const alert and oriented x3 General Appearance: cooperative HEENT normocephalic Resp normal respiratory effort Effort and Inspection: able to speak in complete sentences Cardio regular rate Extremity normal capillary refill Skin Wound Narrative: Right anterior leg ulcer which continues to have a lot of non viable tissue in place and is very painful Neuro CN's II-XII intact bilaterally Psych affect normal Debridement Note Debridement Note No debridement was completed: No debridement was completed today Post-Debridement Measurements and Additional Note: Post-Debridement Measurements/Treatment GARDENIA - Nurse 1 - General Ulcer Assessment Start: 02/17/24 08:40 Freq: Status: Active Protocol: [email or web address] Activity Type Activity Date Activity User E-sign Co-sign Detail Recorded Client Recorded Date Recorded By Document 02/17/24 08:40 KARL [id number] 02/17/24 08:45 KARL 02/17/24 08:40 - Today's Visit Information Type of service Follow-up Visit (Physician/N[employer]CHOOL ATTENDANT ) Arrival Mode Ambulatory Patient Identification Verified (Name & Yes ) Patient Requires Transmission-Based No Precautions Height and Weight Body Mass Index (BMI) 30.3 BMI Classification Obese Vital Signs Temperature (97.8 F-99.1 F) 96.2 F L Temperature Source Temporal Pulse Rate (60-100) 78 Pulse Location Monitor Respiratory Rate (12-18) 16 Respiratory rate source Observation Blood Pressure (90/60-120/80) 145/72 H Blood Pressure Mean (mm Hg) 96 Source Monitor Position Semi-Fowlers Blood Pressure Location Left Arm History Since Last Visit- (Skip if this is Patient's initial visit) Have you changed medications since your No last visit? Any new allergies or adverse reactions No Had a fall/change in ADL's that may No increase risk of falls Signs or symptoms of abuse and/or No neglect since last visit Have you been in the hospital since your No last visit? Has dressing in place as prescribed Yes Has compression in place as prescribed Yes Has offloadiing in place as prescribed N/A Experienced any changes in pain level or No management Left Footwear Regular Shoe Right Footwear Regular Shoe Pain Scale: 0-10 Numeric Is Patient Pain Free? Yes - Nurse 1 - General Ulcer Measurement Start: 02/17/24 08:40 Freq: Status: Active Protocol: Activity Type Activity Date Activity User E-sign Co-sign Detail Recorded Client Recorded Date Recorded By Document 02/17/24 08:40 KARL [id number] 02/17/24 08:45 KARL 02/17/24 08:40 Wound Center Nurse 1 #1 R Umanzor -Combined with other wound No -Current Size (cm) - Length 5.8 -Current Size (cm) - Width 2.0 -Current Size (cm) - Depth 0.1 -Total Square Cm 11.60 -Photo Taken No -Epithelialization Small 1-33% -Tunneling No -Undermining/Tunneling No -Circular Undermining No -Exudate Amt Small -Exudate Type Serosanguineous -Wound Margin Flat & Intact -Granulation Amt None Present (0 %) -Slough/Fibrin Yes -Necrosis Amt Large (67-100%) -Necrotic Tissue Type Adherent Slough -Structure Exposed N/A -Texture (Kathleen-wound Skin Appearance) Assessed -Moisture (Kathleen-wound Skin Appearance) Assessed,Dry/ Scaly -Color (Kathleen-wound Skin Appearance) Assessed -Temperature (Kathleen-wound Skin No Abnormality Appearance) (Pt Warm) -Tenderness on Palpation (Kathleen-wound No Skin Appearance) -Ulcer Cleansing Rinsed/ Irrigated with Saline -Foul Odor after Cleansing No -Anesthetic Used 5% Lidocaine Gel Lower Limb Edema Present Yes Right Calf (cm) 37.6 Right Ankle (cm) 22.5 WC - Nurse 2 - General Ulcer CM Notes Start: 02/17/24 08:40 Freq: Status: Active Protocol: Activity Type Activity Date Activity User E-sign Co-sign Detail Recorded Client Recorded Date Recorded By Document 02/17/24 08:56 KARL [id number] 02/17/24 08:59 KARL 02/17/24 08:56 Wound Center Nurse 2 #1 R Umanzor -Time 08:57 -Correct Patient No -Correct Side, Site, Position No -Correct Procedure No -Procedure Performed No -Tunneling No -Undermining/Tunneling No -Wound/Ulcer Outcome Not Healed -Debridement - Subq, 1st 20sq cm No Pain Scale: 0-10 Numeric Is Patient Pain Free? Yes Assessment/Plan Assessment/Plan (1) Ulcer of right medial lower extremity with fat layer exposed: CODE(S): L97.812 - Non-pressure chronic ulcer of other part of right lower leg with fat layer exposed (2) DM type 2 (diabetes mellitus, type 2): CODE(S): E11.9 - Type 2 diabetes mellitus without complications PLAN: Plan Patient evaluated at the wound healing center today. Wound care - Apply Triamcinolone ointment BID and cover with gauze. (Instructed to make sure to wash hands after applying steroid cream). Compression - Double tubigrip. Encouraged him to keep his leg elevated as much as possible to help prevent swelling. Wound culture from 01/27/24 positive for Serratia marcescens and Citrobacter freundii. He completed Levofloxacin. With his ulcer being larger and his significant amount of discomfort he has been experiencing, may need to consider Pyoderma gangrenosum as a differential diagnosis, will continue to monitor closely. He is going out of town for a week. Will see him back in 2 weeks. Will consider biopsying ulcer and referring to Dermatology at his next visit.
[2024-03-02 08:32] VITALS: BP 178/84; PULSE 73; RESP 18; TEMP 36.1; BMI 30.3
--- NOTE | 2024-03-02 08:55 | UL_PTH ---
PATIENT: ANAI FLORES LOC: U#:[id number] AGE/SX: 68/M ROOM: RE03/09/[address]: HORACE De Leon : 1955 BED: DIS: 03/17/2024 SPEC #: [id number] RECD: 03/02/24 11:58 STATUS: RENA REPradeep #: [id number] TOD: 03/02/24 08:[address]: Cinthia Whiting NP DEPT: SURGICAL PATHOLOGY RECD BY: Cristela Huggins ENTERED: 03/02/24 13:49 SP TYPE: ULCER OTHR DR: HORACE Hutchins Tissues: ULCER Procedures: Special Stain Group I Surgery Specimen Level III GMS Stain (control) HEADER OPERATION: Nonhealing ulcer tissue excision right graff PRE-OP DIAGNOSIS: Non-healing right graff ulcer, rule out pyoderma gangrenosum TISSUE SUBMITTED: Right graff ulcer tissue biopsy MICROSCOPIC DIAGNOSIS Right graff ulcer tissue, biopsy: Focal ulceration, acute and chronic inflammation and granulation tissue reaction. Negative for malignancy. See comment. 03/03/2024 COMMENT Changes consistent with pyoderma gangrenosum are not seen. Special stain for fungi is negative for organisms; matched control is appropriate. Clinical correlation and appropriate follow up are necessary. Case has been reviewed in consultation with Dr. Dangelo who concurs with the above diagnosis. IDC:AM MICROSCOPIC DESCRIPTION Slides are reviewed. GROSS DESCRIPTION Received in fixative is one container labeled with the patient's name and designated Right graff biopsy. The specimen consists of a punch biopsy of warren-white skin measuring 0.5cm in length and 0.5cm in diameter. This piece is bisected. Also present in the container is a small piece of warren-white soft tissue measuring 0.3 x 0.2 x 0.1cm. The entire specimen is submitted in one cassette. 03/02/2024 TC:2 CPT:97939,96091
--- NOTE | 2024-03-02 13:06 | PCM.WC.PN ---
History of Present Illness Date of Service: 03/02/24 Chief Complaint: Right anterior leg ulcer History of Wound: 68 year old male presents with ulcer on his right anterior leg which he obtained in August or September after bumping it on a piece of equipment when he climbing up in it. When he noticed it wasn't healing, he went to his PCP, Dr. Salter. He was placed on Keflex and Bactrim and referred to us at the wound center. He has been placing triple antibiotic ointment on it, without much improvement in his ulcer. He has a medical history of DM type 2, kidney stones, tonsils removed when he was 32. Today he denies fever, chills, nausea or vomiting. He comes in for further evaluation of his right anterior leg ulcer. Progress of Wound: Patient was out of town last week. He has +1 edema of his lower extremities. He continues to have discomfort of the ulcer on his right anterior leg. His ulcer is slightly larger. There continues to be non viable, fibrous tissue present on the ulcer and he experiences a lot of discomfort in this area and there is a purple hue surrounding the ulcer. Since the ulcer is not showing any improvement with conservative treatment, will obtain a punch biopsy today, for further evaluation. Objective Data Objective Data Vital Signs: Vital Signs Temp Pulse Resp BP O2 Del Method 96.9 F L 73 18 178/84 H Room Air 03/02/24 08:32 03/02/24 08:32 03/02/24 08:32 03/02/24 08:32 03/02/24 08:32 Oxygen Delivery Method Room Air Weight: 230 lb 1.011 oz Body Mass Index (BMI) 30.3 Charges/Coding Procedures Integumentary 111xxx-113xx: 82080 Crystal subq tissue 20 sq cm/< Debridement Note Debridement Note Wound debrided: anterior leg ulcer Laterality: Right Type of Debridement: Excisional debridement Anesthesia Used: 5% Lidocaine Gel and - (Lidocaine 1%/epi) Depth: Down to and including healthy tissue and in the subcutaneous layer Percentage of wound debrided: 100 Instrument Used: Forceps and - (scissors) Tissue Removed: Non viable tissue and slough Severity: Fat Layer Exposed Amount of bleeding with debridement: Mild Bleeding Controlled with: Compression and gauze and Silver Nitrate (to the punch biopsy site) Patient tolerated procedure: Patient tolerated procedure well Debridement Free Text: Lidocaine 1%/epi used to numb area to perform punch biopsy. Scissors and pick ups used to remove non viable tissue from the ulcer bed. Pt. tolerated it fairly well. Post-Debridement Measurements and Additional Note: Post-Debridement Measurements/Treatment G[place] - Nurse 1 - General Ulcer Assessment Start: 02/17/24 08:40 Freq: Status: Active Protocol: NIHARIKA Activity Type Activity Date Activity User E-sign Co-sign Detail Recorded Client Recorded Date Recorded By Document 02/17/24 08:40 JF [id number] 02/17/24 08:45 JF Document 03/02/24 08:32 KW [id number] 03/02/24 08:35 KW 02/17/24 03/02/24 08:40 08:32 [place] - Today's Visit Information Type of service Follow-up Visit Follow-up Visit (Physician/IMAGING ADMINISTRATOR (Physician/IMAGING ADMINISTRATOR ) ) Arrival Mode Ambulatory Ambulatory Patient Identification Verified (Name & Yes Yes ) Patient Requires Transmission-Based No Precautions Height and Weight Body Mass Index (BMI) 30.3 30.3 BMI Classification Obese Obese Vital Signs Temperature (97.8 F-99.1 F) 96.2 F L 96.9 F L Temperature Source Temporal Temporal Pulse Rate (60-100) 78 73 Pulse Location Monitor Monitor Respiratory Rate (12-18) 16 18 Respiratory rate source Observation Observation Oxygen Delivery Method Room Air Blood Pressure (90/60-120/80) 145/72 H 178/84 H Blood Pressure Mean (mm Hg) 96 115 Source Monitor Monitor Position Semi-Fowlers Semi-Fowlers Blood Pressure Location Left Arm Left Arm History Since Last Visit- (Skip if this is Patient's initial visit) Have you changed medications since your No No last visit? Any new allergies or adverse reactions No No Had a fall/change in ADL's that may No No increase risk of falls Signs or symptoms of abuse and/or No No neglect since last visit Have you been in the hospital since your No No last visit? Has dressing in place as prescribed Yes Yes Has compression in place as prescribed Yes Yes Has offloadiing in place as prescribed N/A N/A Experienced any changes in pain level or No No management Left Footwear Regular Shoe Regular Shoe Right Footwear Regular Shoe Regular Shoe Pain Scale: 0-10 Numeric Is Patient Pain Free? Yes Yes [facility] - Nurse 1 - General Ulcer Measurement Start: 02/17/24 08:40 Freq: Status: Active Protocol: Activity Type Activity Date Activity User E-sign Co-sign Detail Recorded Client Recorded Date Recorded By Document 02/17/24 08:40 JF [id number] 02/17/24 08:45 JF Document 03/02/24 08:32 KW [id number] 03/02/24 08:35 KW 02/17/24 03/02/24 08:40 08:32 Wound Center Nurse 1 #1 R Umanzor -Combined with other wound No No -Current Size (cm) - Length 5.8 6.3 -Current Size (cm) - Width 2.0 2 -Current Size (cm) - Depth 0.1 0.1 -Total Square Cm 11.60 12.6 -Photo Taken No -Epithelialization Small 1-33% None Present -Tunneling No No -Undermining/Tunneling No No -Circular Undermining No No -Exudate Amt Small Medium -Exudate Type Serosanguineous Serosanguineous -Wound Margin Flat & Intact Distinct, Outline Attached -Granulation Amt None Present (0 None Present (0 %) %) -Slough/Fibrin Yes Yes -Necrosis Amt Large (67-100%) Large (67-100%) -Necrotic Tissue Type Adherent Slough Adherent Slough -Structure Exposed N/A -Texture (Kathleen-wound Skin Appearance) Assessed Assessed, Scarring -Moisture (Kathleen-wound Skin Appearance) Assessed,Dry/ Assessed Scaly -Color (Kathleen-wound Skin Appearance) Assessed Assessed -Temperature (Kathleen-wound Skin No Abnormality No Abnormality Appearance) (Pt Warm) (Pt Warm) -Tenderness on Palpation (Kathleen-wound No Yes Skin Appearance) -Ulcer Cleansing Rinsed/ Rinsed/ Irrigated with Irrigated with Saline Saline -Foul Odor after Cleansing No No -Anesthetic Used 5% Lidocaine 5% Lidocaine Gel Gel Lower Limb Edema Present Yes Right Calf (cm) 37.6 Right Ankle (cm) 22.5 WC - Nurse 2 - General Ulcer CM Notes Start: 02/17/24 08:40 Freq: Status: Active Protocol: Activity Type Activity Date Activity User E-sign Co-sign Detail Recorded Client Recorded Date Recorded By Document 02/17/24 08:56 [id number] 02/17/24 08:59 JF Document 03/02/24 08:54 [id number] 03/02/24 09:04 JF 02/17/24 03/02/24 08:56 08:54 Wound Center Nurse 2 #1 R Umanzor -Time 08:57 08:54 -Correct Patient No Yes -Correct Side, Site, Position No Yes -Correct Procedure No Yes -Procedure Performed No Yes -Type of Procedure Debridement -Clinical Debridement Subcutaneous -Tissue Removed Subcutaneous -Post Debridement (cm) - Length 6.0 -Post Debridement (cm) - Width 2.2 -Post Debridement (cm) - Depth 0.1 -Total Square (Post) (cm) 13.20 -Area of Debridement (cm) - Length 6.0 -Area of Debridement (cm) - Width 2.2 -Total Square (Area) (cm) 13.20 -Tunneling No No -Undermining/Tunneling No No -Circular Undermining No -Wound/Ulcer Outcome Not Healed Not Healed -Ulcer Cleansing Rinsed/ Irrigated with Saline -Foul Odor after Cleansing No -Bioengineered Tissue No -Bleeding Controlled with Pressure,Silver Nitrate -Treatment Response Procedure Tolerated Well -Offloading No -Debridement - Subq, 1st 20sq cm No Yes -I&D / Paring / Biopsy Punch bx skin ( includes simple close, if done ), single lesion Pain Scale: 0-10 Numeric Is Patient Pain Free? Yes Yes WC - Nurse 3 - General Ulcer D/C NN Start: 02/17/24 08:40 Freq: Status: Active Protocol: Activity Type Activity Date Activity User E-sign Co-sign Detail Recorded Client Recorded Date Recorded By Document 03/02/24 09:19 ML [id number] 03/02/24 09:20 ML 03/02/24 09:19 Wound Care Center Nurse 3 #1 R Umanzor -Ulcer Cleansing Rinsed/ Irrigated with Saline -Foul Odor after Cleansing No -Negative Pressure Wound Therapy N/A -Primary Dressing Applied Mepilex Border -Other Dressing triamcinolone cream -Mepilex Border 1 Right -Tubular Bandage Double Layer -Size of Tubigrip Used Size E -Size E ($) 2 Pain Scale: 0-10 Numeric Is Patient Pain Free? Yes Assessment/Plan Assessment/Plan (1) Ulcer of right medial lower extremity with fat layer exposed: CODE(S): L97.812 - Non-pressure chronic ulcer of other part of right lower leg with fat layer exposed (2) DM type 2 (diabetes mellitus, type 2): CODE(S): E11.9 - Type 2 diabetes mellitus without complications PLAN: Plan Patient evaluated at the wound healing center today. Wound care - Continue Triamcinolone ointment BID and cover with [place] SAP. (Instructed to make sure to wash hands after applying steroid cream). Compression - Double tubigrip. Encouraged him to keep his leg elevated as much as possible to help prevent swelling. Wound culture from 01/27/24 positive for Serratia marcescens and Citrobacter freundii. He completed Levofloxacin. With his ulcer being larger and his significant amount of discomfort he has been experiencing, may need to consider Pyoderma gangrenosum as a differential diagnosis, will continue to monitor closely. A punch biopsy was performed after numbing the edge of the ulcer with Lidocaine 1%/epi (2 cc). It took awhile for him to become numb. Pressure held to help control the bleeding. One edge continued to ooze, used silver nitrate to stop the bleeding. Able to gently remove non viable tissue since he was numb. Once we obtain the biopsy results, we will consider referring him to Dermatology for further evaluation. He will follow up one week.
[2024-03-09 08:36] VITALS: BP 147/75; PULSE 73; TEMP 35.7; BMI 30.3
--- NOTE | 2024-03-09 09:14 | PCM.WC.PN ---
History of Present Illness Date of Service: 03/09/24 Chief Complaint: Right anterior leg ulcer History of Wound: 68 year old male presents with ulcer on his right anterior leg which he obtained in August or September after bumping it on a piece of equipment when he climbing up in it. When he noticed it wasn't healing, he went to his PCP, Dr. Salter. He was placed on Keflex and Bactrim and referred to us at the wound center. He has been placing triple antibiotic ointment on it, without much improvement in his ulcer. He has a medical history of DM type 2, kidney stones, tonsils removed when he was 32. Today he denies fever, chills, nausea or vomiting. Pathology from punch biopsy on 03/02/24 shows Focal ulceration, acute and chronic inflammation and granulation tissue reaction. Negative for malignancy. It also stated that Changes consistent with pyoderma gangrenosum are not seen. Special stain for fungi is negative for organisms; matched control is appropriate. He comes in for further evaluation of his right anterior leg ulcer. Progress of Wound: Reviewed pathology results. It states that it is not consistent with pyoderma gangrenosum, clinically it does look like it. I will refer him to dermatology for further evaluation. This ulcer continues to enlarge and be extremely painful, even without debridement. He continues to have thick, dry layer of non viable tissue present. He has been using Triamcinolone ointment as the wound care, which has helped the edges not look as purple, but is not improving the amount of non viable tissue present. Objective Data Objective Data Vital Signs: Vital Signs Temp Pulse Resp BP O2 Del Method 96.3 F L 73 18 147/75 H Room Air 03/09/24 08:36 03/09/24 08:36 03/02/24 08:32 03/09/24 08:36 03/02/24 08:32 Oxygen Delivery Method Room Air Weight: 230 lb 1.011 oz Body Mass Index (BMI) 30.3 Charges/Coding Procedures Integumentary 111xxx-113xx: 40704 Crystal subq tissue 20 sq cm/< Debridement Note Debridement Note Wound debrided: anterior leg ulcer Laterality: Right Type of Debridement: Excisional debridement Anesthesia Used: 5% Lidocaine Gel and - (Lidocaine 1%/epi) Depth: Down to and including healthy tissue and in the subcutaneous layer Percentage of wound debrided: 100 Instrument Used: #15 blade and Forceps Tissue Removed: Non viable tissue and slough Severity: Fat Layer Exposed Amount of bleeding with debridement: Mild Bleeding Controlled with: Compression and gauze Patient tolerated procedure: Patient tolerated procedure well Debridement Free Text: Used pick ups and #15 blade to remove elevated non viable tissue and to place hash lockett in the non viable tissue to allow the santyl to penetrate under it. Post-Debridement Measurements and Additional Note: Post-Debridement Measurements/Treatment - Nurse 1 - General Ulcer Assessment Start: 02/17/24 08:40 Freq: Status: Active Protocol: NIHARIKA Activity Type Activity Date Activity User E-sign Co-sign Detail Recorded Client Recorded Date Recorded By Document 02/17/24 08:40 JF [id number] 02/17/24 08:45 JF Document 03/02/24 08:32 KW [id number] 03/02/24 08:35 KW Document 03/09/24 08:36 BMF [id number] 03/09/24 08:44 BMF 02/17/24 03/02/24 03/09/24 08:40 08:32 08:36 - Today's Visit Information Type of service Follow-up Visit Follow-up Visit Follow-up Visit (Physician/OUTDOOR RECREATION SPECIALIST (Physician/OUTDOOR RECREATION SPECIALIST (Physician/OUTDOOR RECREATION SPECIALIST ) ) ) Arrival Mode Ambulatory Ambulatory Ambulatory Transfer Assistance None Patient Identification Verified (Name & Yes Yes Yes ) Patient Requires Transmission-Based No No Precautions Height and Weight Body Mass Index (BMI) 30.3 30.3 30.3 BMI Classification Obese Obese Obese Vital Signs Temperature (97.8 F-99.1 F) 96.2 F L 96.9 F L 96.3 F L Temperature Source Temporal Temporal Temporal Pulse Rate (60-100) 78 73 73 Pulse Location Monitor Monitor Monitor Respiratory Rate (12-18) 16 18 Respiratory rate source Observation Observation Oxygen Delivery Method Room Air Blood Pressure (90/60-120/80) 145/72 H 178/84 H 147/75 H Blood Pressure Mean (mm Hg) 96 115 99 Source Monitor Monitor Monitor Position Semi-Fowlers Semi-Fowlers Sitting Blood Pressure Location Left Arm Left Arm Left Arm History Since Last Visit- (Skip if this is Patient's initial visit) Have you changed medications since your No No No last visit? Any new allergies or adverse reactions No No No Had a fall/change in ADL's that may No No No increase risk of falls Signs or symptoms of abuse and/or No No No neglect since last visit Have you been in the hospital since your No No No last visit? Has dressing in place as prescribed Yes Yes Yes Has compression in place as prescribed Yes Yes Yes Has offloadiing in place as prescribed N/A N/A N/A Experienced any changes in pain level or No No No management Left Footwear Regular Shoe Regular Shoe Regular Shoe Right Footwear Regular Shoe Regular Shoe Regular Shoe Pain Scale: 0-10 Numeric Is Patient Pain Free? Yes Yes Yes WC - Nurse 1 - General Ulcer Measurement Start: 02/17/24 08:40 Freq: Status: Active Protocol: Activity Type Activity Date Activity User E-sign Co-sign Detail Recorded Client Recorded Date Recorded By Document 02/17/24 08:40 JF [id number] 02/17/24 08:45 JF Document 03/02/24 08:32 KW [id number] 03/02/24 08:35 KW Document 03/09/24 08:36 BM [id number] 03/09/24 08:44 BMF 02/17/24 03/02/24 03/09/24 08:40 08:32 08:36 Wound Center Nurse 1 #1 R Umanzor -Combined with other wound No No No -Current Size (cm) - Length 5.8 6.3 5.8 -Current Size (cm) - Width 2.0 2 1.8 -Current Size (cm) - Depth 0.1 0.1 0.5 -Total Square Cm 11.60 12.6 10.44 -Date of Last Picture (Recall this 03/09/24 field) -Photo Taken No Yes -Epithelialization Small 1-33% None Present None Present -Tunneling No No No -Undermining/Tunneling No No No -Circular Undermining No No No -Exudate Amt Small Medium Medium -Exudate Type Serosanguineous Serosanguineous Serosanguineous -Wound Margin Flat & Intact Distinct, Distinct, Outline Outline Attached Attached -Granulation Amt None Present (0 None Present (0 None Present (0 %) %) %) -Slough/Fibrin Yes Yes Yes -Necrosis Amt Large (67-100%) Large (67-100%) Large (67-100%) -Necrotic Tissue Type Adherent Slough Adherent Slough Adherent Slough -Structure Exposed N/A -Texture (Kathleen-wound Skin Appearance) Assessed Assessed, Assessed Scarring -Moisture (Kathleen-wound Skin Appearance) Assessed,Dry/ Assessed Assessed Scaly -Color (Kathleen-wound Skin Appearance) Assessed Assessed Assessed -Temperature (Kathleen-wound Skin No Abnormality No Abnormality No Abnormality Appearance) (Pt Warm) (Pt Warm) (Pt Warm) -Tenderness on Palpation (Kathleen-wound No Yes Yes Skin Appearance) -Ulcer Cleansing Rinsed/ Rinsed/ Soap and Water Irrigated with Irrigated with Saline Saline -Foul Odor after Cleansing No No No -Anesthetic Used 5% Lidocaine 5% Lidocaine 5% Lidocaine Gel Gel Gel Lower Limb Edema Present Yes Right Calf (cm) 37.6 37.2 Right Ankle (cm) 22.5 22.7 WC - Nurse 2 - General Ulcer CM Notes Start: 02/17/24 08:40 Freq: Status: Active Protocol: Activity Type Activity Date Activity User E-sign Co-sign Detail Recorded Client Recorded Date Recorded By Document 02/17/24 08:56 [id number] 02/17/24 08:59 Document 03/02/24 08:54 [id number] 03/02/24 09:04 Document 03/09/24 08:55 [id number] 03/09/24 08:59 Edit Result 03/09/24 08:55 (1) [id number] 03/09/24 09:03 (1) #1 R Umanzor - Time => 09:01 - Correct Patient No => Yes - Correct Side, Site, Position No => Yes - Correct Procedure No => Yes - Procedure Performed No => Yes - Type of Procedure => Debridement - Clinical Debridement => Subcutaneous - Tissue Removed => Subcutaneous - Tunneling => No - Debridement - Subq, 1st 20sq cm No => Yes 02/17/24 03/02/24 03/09/24 08:56 08:54 08:55 Wound Center Nurse 2 #1 R Umanzor -Time 08:57 08:54 09:01 -Correct Patient No Yes Yes -Correct Side, Site, Position No Yes Yes -Correct Procedure No Yes Yes -Procedure Performed No Yes Yes -Type of Procedure Debridement Debridement -Clinical Debridement Subcutaneous Subcutaneous -Tissue Removed Subcutaneous Subcutaneous -Post Debridement (cm) - Length 6.0 6.0 -Post Debridement (cm) - Width 2.2 2.8 -Post Debridement (cm) - Depth 0.1 0.5 -Total Square (Post) (cm) 13.20 16.80 -Area of Debridement (cm) - Length 6.0 6.0 -Area of Debridement (cm) - Width 2.2 2.8 -Total Square (Area) (cm) 13.20 16.80 -Tunneling No No No -Undermining/Tunneling No No No -Circular Undermining No No -Wound/Ulcer Outcome Not Healed Not Healed Not Healed -Ulcer Cleansing Rinsed/ Rinsed/ Irrigated with Irrigated with Saline Saline -Foul Odor after Cleansing No No -Bioengineered Tissue No No -Bleeding Controlled with Pressure,Silver Pressure Nitrate -Treatment Response Procedure Procedure Tolerated Well Tolerated Well -Offloading No No -Debridement - Subq, 1st 20sq cm No Yes Yes -I&D / Paring / Biopsy Punch bx skin ( includes simple close, if done ), single lesion Pain Scale: 0-10 Numeric Is Patient Pain Free? Yes Yes Yes - Nurse 3 - General Ulcer D/C NN Start: 02/17/24 08:40 Freq: Status: Active Protocol: Activity Type Activity Date Activity User E-sign Co-sign Detail Recorded Client Recorded Date Recorded By Document 03/02/24 09:19 ML [id number] 03/02/24 09:20 ML Document 03/09/24 09:10 [facility] [id number] 03/09/24 09:12 [facility] 03/02/24 03/09/24 09:19 09:10 Wound Care Center Nurse 3 #1 R Umanzor -Ulcer Cleansing Rinsed/ Rinsed/ Irrigated with Irrigated with Saline Saline -Foul Odor after Cleansing No No -Negative Pressure Wound Therapy N/A -Primary Dressing Applied Mepilex Border Mepilex Border -Other Dressing triamcinolone hydrogel in cream clinic today -Mepilex Border 1 1 -Wound Comment(s) 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 Yes Yes - Visit Discharge Discharge Condition Stable Ambulatory Status Ambulatory Transportation Private Auto Assessment/Plan Assessment/Plan (1) Ulcer of right medial lower extremity with fat layer exposed: CODE(S): L97.812 - Non-pressure chronic ulcer of other part of right lower leg with fat layer exposed (2) DM type 2 (diabetes mellitus, type 2): CODE(S): E11.9 - Type 2 diabetes mellitus without complications PLAN: Plan Patient evaluated at the wound healing center today. Wound care - Stop Triamcinolone ointment and restart Santyl ointment nickel thickness daily, covered with lightly moistened gauze covered with excel SAP. Compression - Double Tubigrip. Encouraged him to keep his leg elevated as much as possible to help prevent swelling. Wound culture from 01/27/24 positive for Serratia marcescens and Citrobacter freundii. He completed Levofloxacin. Pathology from punch biopsy on 03/02/24 shows Focal ulceration, acute and chronic inflammation and granulation tissue reaction. Negative for malignancy. It also stated that Changes consistent with pyoderma gangrenosum are not seen. Special stain for fungi is negative for organisms; matched control is appropriate. Will refer to dermatology for further evaluation and treatment of this painful, non healing ulcer. He will follow up two weeks.
--- NOTE | 2024-03-12 09:12 | WC ---
PHOTO 03/09/24 RIGHT [place]
== END 2024-03-17 23:59 | disposition home or self-care (01) ==
LOC: WC 08:45
PROVIDERS: PCP Nurse Practitioner Family; Referring Provider Nurse Practitioner Family; Visit Provider Nurse Practitioner Family
DX: E11.622 Type 2 diabetes mellitus with other skin ulcer (principal); L97.812 Non-pressure chronic ulcer of other part of right lower leg with fat layer exposed; R60.0 Localized edema
CPT/HCPCS: 11042; 11104; 88304; 88312; 99213; G0463